=== PATIENT | male | born 1930 | race Caucasian/White ===

== ENCOUNTER 2016-11-08 09:25 | Emergency (ER) | payer OTHER ==
[2016-11-08 09:51] VITALS: BP 185/90; PULSE 71; TEMP 97.5; BMI 38.0
[2016-11-08] MEDS ORDERED: DIPHTH,PERTUSS(ACELL),TET 0.5 ML DISP.SYRIN IM ONE (09:53)
--- NOTE | 2016-11-08 10:00 | PDOC ---
History of Present Illness - General Chief Complaint: Edema Stated Complaint: LEFT LEE WOUND WITH EDEMA Time Seen by Provider: 11/08/16 09:44 - History of Present Illness Initial Comments: 11/08/16 09:56 86 yo male h/o afib, CHF COPD chronic edema, here with c/o anterior lee wound. banged his leg one week ago, now weeping clear fluid from edema. no fever or chills. no worsening redness or pain. no cp . no worse shortness of breath . no mod factors. draining clear, serous fluid. no exudate. no pain. pt sees a career counselor, has not seen in a very long time. pcp. Dr. Siddiqui. Past History - Past Medical History Allergies/Adverse Reactions: Allergies Allergy/AdvReac Type Severity Reaction Status Date / Time No Known Drug Allergies Allergy Verified 12/18/15 03:22 Anemia: No Asthma: Yes Cancer: No Cardiac Disorders: Yes (CHF) CVA: No COPD: Yes CHF: Yes Dementia: No Diabetes: No GI Disorders: No Disorders: Yes (urinary retention) HTN: Yes Hypercholesterolemia: No Liver Disease: No Seizures: No Thyroid Disease: No Other medical history: GOUT - Surgical History Abdominal Surgery: No Appendectomy: Yes Cardiac Surgery: Yes (PACEMAKER 2012) Cholecystectomy: No Lung Surgery: No Neurologic Surgery: No Orthopedic Surgery: No - Immunization History Td Vaccination: Yes Immunization Up to Date: No - Psycho/Social/Smoking Cessation Hx Anxiety: No Suicidal Ideation: No Smoking Status: No Smoking History: Former smoker Have you smoked in the past 12 months: No Number of Cigarettes Smoked Daily: 40 If you are a former smoker, when did you quit?: 50 YEARS AGO Information on smoking cessation initiated: No Hx Alcohol Use: Yes Drug/Substance Use Hx: No Substance Use Type: Alcohol Hx Substance Use Treatment: No Review of Systems - Review of Systems Constitutional: No: Chills, Diaphoresis, Fever Respiratory: Yes: Other (chorn). No: Cough, Orthopnea, Shortness of Breath, Wheezing Cardiac (ROS): No: Chest Pain, Edema Musculoskeletal: Yes: Other (anterior lee skin tear. ) Integumentary: Yes: Lesions Neurological: No: Headache, Numbness Hematologic/Lymphatic: Yes: Other (leg edema chronic) *Physical Exam - Vital Signs Last Vital Signs Temp Pulse Resp BP Pulse Ox 97.5 F L 71 22 185/90 94 L 11/08/16 09:34 11/08/16 09:34 11/08/16 09:34 11/08/16 09:34 11/08/16 09:34 - Physical Exam General Appearance: No: Appropriately Dressed, Apparent Distress Neck: positive: Trachea midline. negative: Normal Thyroid, Rigid Respiratory/Chest: positive: Lungs Clear, Normal Breath Sounds. negative: Respiratory Distress Cardiovascular: positive: Regular Rhythm, Regular Rate, S1, S2, Edema Vascular Pulses: Femoral (R): 2+, Femoral (L): 2+, Dorsalis-Pedis (R): 2+, Doralis-Pedis (L): 2+ Gastrointestinal/Abdominal: positive: Tender, Soft, Other (obese) Extremity: positive: Pedal Edema, Swelling. negative: Erythema, Inflammation Integumentary: positive: Normal Color, Dry, Warm, Other (chronic brawning edema bilat lower extr. left anterio chin 1 x 1/5 cm skin tear. clear drainage. no erythema no warmth. ) Neurologic: positive: Fully Oriented, Alert, Normal Mood/Affect, Responsive ED Treatment Course - LABORATORY CBC & Chemistry Diagram: 11/08/16 10:04 11/08/16 10:04 Medical Decision Making - Medical Decision Making 11/08/16 10:02 86 yo M with h/o afib, CHF, COpd and chronic leg edema on lasix here s/p leg wound with chronic edema/ clear drainage. differentail cellulitis, early, chronic edema. renal failure. plan cbc cmp oral antiobtiocs. local wound care with bacitracin and juan wrap to help edema and drainage. crista close oupt followup. tetanus. 11/08/16 11:02 labs unremarkable. will dc with bactrim twice daily. topical antiobiotics and close followup with dr. siddiqui. 11/08/16 11:06 plan discussed [facility] Dr. Siddiqui who will see pt next week. *DC/Admit/Observation/Transfer Diagnosis at time of Disposition: Skin tear - Discharge Dispostion Disposition: HOME Condition at time of disposition: Improved Admit: No - Referrals Referrals: Martinez Siddiqui MD [Primary Care Provider] - 2 Days - Patient Instructions Additional Instructions: you should take bactrim antiobtiocs pill twice daily. for 7 days. you should also soak left lee in warm water 1 - 2 x daily. apply topical bacitracin or any over the counter triple antiobiotic cream with guaze and juan wrap to hold compression. follow up with Dr. Siddiqui within 2 - 3 days. call to schedule return for worsening redness, pain or fevers. you were given a tetanus shot today and are good for 5 years.
[2016-11-08 10:06] LABS: PLATELET COUNT 177 K/MM3 (134-434)
[2016-11-08 10:21] LABS: BASOPHIL 0.6 % (0-2.0); EOSINOPHIL 1.7 % (0-4.5); MCH 31.6 pg (25.7-33.7); MCHC 33.3 g/dl (32.0-35.9); MEAN CELL VOLUME 94.7 fl (80-96); MEAN PLT VOLUME 9.4 fl (7.5-11.1); NEUTROPHILS 79.9 % (42.8-82.8); RDW 13.1 % (11.9-15.9); WHITE BLOOD COUNT 7.4 K/mm3 (4.0-10.8)
[2016-11-08 10:28] LABS: ALBUMIN 3.6 g/dl (3.5-5.0); ALK PHOS 111 U/L (32-92); ANION GAP 10 (8-16); BILIRUBIN,TOTAL 0.9 mg/dl (0.2-1.0); CALCIUM 8.8 mg/dl (8.4-10.2); CO2 26 mmol/L (22-28); CREATININE 1.6 mg/dl (0.6-1.3); GLUCOSE,RANDOM 191 mg/dl (74-106); SGOT/AST 20 U/L (10-42); SGPT/ALT 24 U/L (10-40); TOT PROT 6.8 g/dl (6.4-8.3)
[2016-11-08] MEDS ORDERED: SULFAMETHOXAZOLE/TRIMETHOPRIM 800MG/160MG D.S. TABLET PO ONE (11:01)
[2016-11-08] MEDS ORDERED: SULFAMETHOXAZOLE/TRIMETHOPRIM 800MG/160MG D.S. TABLET ONE (11:04)
== END 2016-11-08 11:32 | disposition home or self-care (01) ==
LOC: FER 09:25
PROC: 3E0234Z Introduction of Serum, Toxoid and Vaccine into Muscle, Percutaneous Approach (ICD-10-PCS; principal; 2016-11-08)
DX: S81.812A Laceration without foreign body, left lower leg, initial encounter (principal); X58.XXXA Exposure to other specified factors, initial encounter; Y93.9 Activity, unspecified; Y92.9 Unspecified place or not applicable; J44.9 Chronic obstructive pulmonary disease, unspecified; Z87.891 Personal history of nicotine dependence; Z95.0 Presence of cardiac pacemaker; I10 Essential (primary) hypertension; J45.909 Unspecified asthma, uncomplicated
CPT/HCPCS: 36415; 80053; 85025; 90471; 90715; 99282-25

== ENCOUNTER 2017-07-10 22:12 | Inpatient (IN) | payer OTHER ==
--- NOTE | 2017-07-10 22:34 | PDOC ---
History of Present Illness - General Chief Complaint: Weakness Stated Complaint: FALL AND COULDN'T GET UP Time Seen by Provider: 07/10/17 22:25 History Source: Patient Exam Limitations: No Limitations - History of Present Illness Initial Comments: 07/10/17 23:21 This is an 87-year-old male who comes in by EMS for evaluation of generalized weakness of his lower extremities this evening. Patient is obese and does have a home health aide 4 hours a day for days a week. Patient is normally able to ambulate without difficulty. However this evening patient went to get off of the toilet when his legs became too weak to allow him to stand and he slumped to the floor. Patient called his son who then called EMS and he was brought in for evaluation. Patient here in the emergency room is without complaints of any injuries.. Patient said he did not his his head did not pass out. Patient is complaining of generalized weakness in his lower legs as well as low back pain. Patient said he has had low back pain for some time but does not take anything but Tylenol for it. When we attempted to assist patient to a standing position he was unable to stand up with assistance. Patient contributed the difficulty in standing up secondary to weakness and discomfort in his low back and knees bilateral. We were able to assist patient to a standing position and he was able to bear weight but said he felt too weak to ambulate. 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 MEDICATIONS: reviewed ALLERGIES: As per nursing notes Review of Systems General: No fevers or chills, no weakness, no weight loss HEENT: No change in vision. No sore throat,. No ear pain CardioVascular: No chest pain or shortness of breath Respiratory:No cough, or wheezing. Gastrointestinal: no nausea, vomitting, diarrhea or constipation, No rectal bleeding Genitourinary: No dysuria, hematuria, or frequency Musculoskeletal: No joint or muscle pain or swelling Neurologic: No headache, vertigo, dizziness or loss of consciousness, weakness of the lower extremities bilateral Psychiatric: nor depression Skin: No rashes or easy bruising Endocrine: no increased thirst or abnormal weight change Allergic: no skin or latex allergy All other systems reviewed and normal Exam: General: Well-nourished well-developed individual, no acute distress HEENT: Throat: Normal, tonsils normal, no erythema or exudate Neck: Supple, no meningeal signs, no lymphadenopathy Eyes::Pupils equal reactive and round, extraocular motion intact Chest: Nontender to palpation Cardiac: S1-S2 normal, regular rate and rhythm, no murmurs rubs or gallops Respiratory: Lungs clear to auscultation bilateral Abdomen: Soft, nondistended, normal bowel sounds, nontender to palpation diffusely Extremities: Warm, dry, no cyanosis, clubbing, 3+ pitting edema bilateral with some generalized mild erythema Skin: No rashes Neuro: See NIH stroke scale Psych: Normal mood and affect Medical decision making: This is an 87-year-old male who developed acute onset of bilateral leg weakness to the point he was unable to stand up and sat down on the floor of his bathroom. Patient did not fall down or pass out however he was so weak he require the ambulance to get him up off the floor and even then was difficult for him to stand. Differential diagnosis includes CVA, TIA, low back radiculopathy, infection. We'll obtain a workup including CBC, metabolic profile, EKG, cardiac profile, CT head, chest x-ray and urinalysis Will reassess 07/10/17 23:31 Reassessment patient remains clinically unchanged. I attempted to get patient up to ambulate he was unable to stand up patient attributed to back pain and knee pain 07/11/17 00:28 Reassessment patient remains clinically unchanged 07/11/17 00:[address] shows no acute intracranial pathology hemorrhage or CVA there is microvascular changes as well as age related volume loss. EKG shows a pacemaker failure with a dual-chamber pacemaker that is only pacing the ventricular chamber rate is 68 Assessment and plan: This is an 87-year-old male who comes in complaining of generalized leg weakness however when I did the NIH stroke scale it is for 2 points were for a facial droop which is old secondary to his Cristina's palsy and 2 points were for his left leg being more weak than his right. However it is uncertain as to whether this is new or old as he says that he is unable to hold his leg up secondary to pain in his low back. Patient does have an elevated white count with left shift Past History - Past Medical History Allergies/Adverse Reactions: Allergies Allergy/AdvReac Type Severity Reaction Status Date / Time No Known Drug Allergies Allergy Verified 12/18/15 03:22 Anemia: No Asthma: Yes Cancer: No Cardiac Disorders: Yes (CHF) CVA: No COPD: Yes CHF: Yes Dementia: No Diabetes: No GI Disorders: No Disorders: Yes (urinary retention) HTN: Yes Hypercholesterolemia: No Liver Disease: No Seizures: No Thyroid Disease: No - Surgical History Abdominal Surgery: No Appendectomy: Yes Cardiac Surgery: Yes (PACEMAKER 2012) Cholecystectomy: No Lung Surgery: No Neurologic Surgery: No Orthopedic Surgery: No - Immunization History Td Vaccination: Yes Immunization Up to Date: No - Suicide/Smoking/Psychosocial Hx Smoking Status: No Smoking History: Unknown if ever smoked Have you smoked in the past 12 months: No Number of Cigarettes Smoked Daily: 40 If you are a former smoker, when did you quit?: 50 YEARS AGO Hx Alcohol Use: Yes Drug/Substance Use Hx: No Substance Use Type: Alcohol Hx Substance Use Treatment: No *Physical Exam - Vital Signs Last Vital Signs Temp Pulse Resp BP Pulse Ox 97.5 F L 67 16 120/62 97 07/10/17 22:13 07/10/17 22:13 07/10/17 22:13 07/10/17 22:13 07/10/17 22:13 ED Treatment Course - LABORATORY CBC & Chemistry Diagram: 07/10/17 23:30 07/10/17 23:30 *DC/Admit/Observation/Transfer Diagnosis at time of Disposition: Weakness, Pacemaker lead failure - Discharge Dispostion Condition at time of disposition: Stable Admit: Yes - Referrals Referrals: Martinez Siddiqui MD [Primary Care Provider] - - Patient Instructions - Post Discharge Activity
[2017-07-10] MEDS ORDERED: morphine CARPU-JECT 4 MG/1 ML DISP.SYRIN IVPUSH ONE (23:15)
[2017-07-10] MEDS ORDERED: morphine SULFATE 4 MG/ML VIAL ONE (23:30)
--- NOTE | 2017-07-10 23:31 | PDOC ---
NIH Stroke Scale - Last Known Well Date/Time & Onset Date Last Known Well: 07/10/17 Time Last Known Well: 22:00 - Initial Evaluation Level of consciousness: Alert Ask patient the month and their age: Answers both correctly Ask patient to open & close eyes; make fist and let go: Obeys both correctly Best gaze (horizontal eye movement): Normal Visual field testing: No visual field loss Facial paresis (Show teeth/raise eyebrows/close eyes tight): Partial paralysis ( total or near paralysis of lower face) Motor Function: Left Arm: Normal Motor Function: Right Arm: Normal (extends arm 90 (or 45) degrees for 10 seconds without drift Motor Function: Left Leg: Some effort against gravity Motor Function: Right Leg: Normal (extends leg 30 degrees for 5 seconds without drift) Limb Ataxia: No ataxia Sensory(Use pinprick test arms,legs,trunk,face/side to side): Normal Best language (Describe picture, name items, read sentences): No Aphasia Dysarthria (read several words): Normal articulation Extinction and Inattention: No abnormality - Total Score NIH Stroke Scale Score: 4
[2017-07-10 23:41] LABS: HEMATOCRIT 43.6 % (35.4-49); HEMOGLOBIN 14.2 GM/dl (11.7-16.9); INR 1.06 (0.82-1.09); MCH 31.8 pg (25.7-33.7); MCHC 32.6 g/dl (32.0-35.9); MEAN CELL VOLUME 97.5 fl (80-96); MEAN PLT VOLUME 10.1 fl (7.5-11.1); PLATELET COUNT 164 K/MM3 (134-434); PROTHROMBIN TIME (PATIENT) 11.9 SEC (10.2-13.0); RBC 4.47 M/mm3 (4.00-5.60); RDW 13.6 % (11.9-15.9); WHITE BLOOD COUNT 12.3 K/mm3 (4.0-10.8)
[2017-07-10 23:47] LABS: ALBUMIN 3.5 g/dl (3.5-5.0); ALK PHOS 160 U/L (32-92); ANION GAP 15 (8-16); BILIRUBIN,TOTAL 0.9 mg/dl (0.2-1.0); BLOOD UREA NITROGEN 34 mg/dl (7-18); CALCIUM 8.3 mg/dl (8.4-10.2); CHLORIDE 97 mmol/L (98-107); CO2 22 mmol/L (22-28); CREATININE 1.3 mg/dl (0.6-1.3); GLUCOSE,RANDOM 137 mg/dl (74-106); POTASSIUM 4.4 mmol/L (3.5-5.1); SGOT/AST 36 U/L (10-42); SGPT/ALT 31 U/L (10-40); SODIUM 134 mmol/L (136-145); TOT PROT 6.2 g/dl (6.4-8.3)
[2017-07-10 23:54] LABS: PLATELET ESTIMATE ADEQUATE
[2017-07-11 01:10] LABS: URINE APPEARANCE CLEAR; URINE BILIRUBIN NEGATIVE (NEGATIVE); URINE BLOOD 3+ (NEGATIVE); URINE COLOR YELLOW; URINE GLUCOSE (UA) NEGATIVE (NEGATIVE); URINE KETONE NEGATIVE (NEGATIVE); URINE LEUK ESTERASE NEGATIVE (NEGATIVE); URINE NITRITE NEGATIVE (NEGATIVE); URINE PROTEIN NEGATIVE (NEGATIVE); URINE UROBILINOGEN NEGATIVE mg/dL (0.2-1.0)
[2017-07-11 01:16] LABS: EPI CELLS RARE /HPF (FEW); URINE HYALINE CAST 140 /lpf; URINE MUCUS RARE
[2017-07-11 02:51] VITALS: BMI 38.9
[2017-07-11] MEDS: FUROSEMIDE 40 MG TABLET (FP) PO SCH ×2 (06:43→13:53)
[2017-07-11 08:44] LABS: BASO % 0.4 % (0-2.0); EOS % 1.2 % (0-4.5); HEMATOCRIT 39.5 % (35.4-49); HEMOGLOBIN 13.7 GM/dl (11.7-16.9); LYMPH % 10.7 % (8-40); MCH 33.7 pg (25.7-33.7); MCHC 34.7 g/dl (32.0-35.9); MEAN CELL VOLUME 97.2 fl (80-96); MEAN PLT VOLUME 9.7 fl (7.5-11.1); NEUT % 77.7 % (42.8-82.8); PLATELET COUNT 130 K/MM3 (134-434); RBC 4.06 M/mm3 (4.00-5.60); RDW 13.5 % (11.9-15.9); WHITE BLOOD COUNT 8.1 K/mm3 (4.0-10.8)
[2017-07-11 08:55] LABS: ANION GAP 7 (8-16); BLOOD UREA NITROGEN 34 mg/dl (7-18); CALCIUM 8.2 mg/dl (8.4-10.2); CHLORIDE 101 mmol/L (98-107); CO2 26 mmol/L (22-28); CREATININE 1.2 mg/dl (0.6-1.3); GLUCOSE,RANDOM 126 mg/dl (74-106); MAGNESIUM 2.2 mg/dL (1.8-2.4); PHOSPHOROUS 3.8 mg/dl (2.5-4.6); POTASSIUM 3.9 mmol/L (3.5-5.1); SODIUM 134 mmol/L (136-145)
[2017-07-11] MEDS ORDERED: CARVEDILOL 25 MG TABLET (FP) PO SCH (10:00)
[2017-07-11] MEDS ORDERED: PT OWN MED DRAWER 7, Y5N ONE ×2 (10:36→21:40)
[2017-07-11] MEDS: SPIRONOLACTONE 25 MG TABLET (FP) PO SCH (10:47)
[2017-07-11] MEDS: BUDESONIDE/FORMETEROL FUMARATE 160/4.5 mcg INHALER IH SCH ×2 (10:48→21:48)
--- NOTE | 2017-07-11 13:32 | HP ---
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 The patient was at home in his bathroom he was unable to keep himself up, he felt his legs giving out, he dropped to the floor on his legs, hit his right knee, did not hit his head and pressed his life alert necklace. Son and law and grandson tried to lift him, unable, EMS was called. Currently, denies sob, cp, abd pain, head ache, palpitations, fever, chills. He complains of chronic back pain and knee pain he has been getting progressively weak. He drinks ETOH daily, last drink was last night, usually beer or burbon. He was told to take 80mg of lasix in AM and additional 20mg pill, his 20mg pill bottle was thrown away on accident thus, hes only been taking 80mg. 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) Cardiovascular: Yes: AFIB (anticoagulation, including ASA, declined), CHF, HTN Pulmonary: Yes: Asthma, COPD Musculoskeletal: Yes: Osteoarthritis Rheumatology: Yes: Gout Endocrine: Yes: Diabetes Mellitus, Other (obesity) - Past Surgical History Past Surgical History: Yes: Cataract Removal, Permanent Pacemaker - Advance Directives Advance Directives: Yes: Health Care Proxy - Smoking History Smoking history: Unknown if ever smoked Have you smoked in the past 12 months: No Aproximately how many cigarettes per day: 40 If you are a former smoker, when did you quit?: 50 YEARS AGO - Alcohol/Substance Use Hx Alcohol Use: Yes (EVERYDAY) History of Substance Use: reports: None - Social History Usual Living Arrangement: Yes: Alone ADL: Independent Occupation: Retired- [employer] History of Recent Travel: No Home Medications - Allergies Allergies/Adverse Reactions: Allergies Allergy/AdvReac Type Severity Reaction Status Date / Time No Known Drug Allergies Allergy Verified 12/18/15 03:22 Family Disease History - Family Disease History Family Disease History: Other: Father ( 83 COPD), Mother ( 66 brain tumor) Review of Systems - Review of Systems Constitutional: reports: No Symptoms Eyes: reports: No Symptoms HENT: reports: No Symptoms Neck: reports: No Symptoms Cardiovascular: reports: No Symptoms Respiratory: reports: No Symptoms Gastrointestinal: reports: No Symptoms Genitourinary: reports: No Symptoms Musculoskeletal: reports: No Symptoms Integumentary: reports: No Symptoms Neurological: reports: Unsteady Gait, Weakness Endocrine: reports: No Symptoms Hematology/Lymphatic: reports: No Symptoms Psychiatric: reports: No Symptoms Physical Examination Vital Signs: Vital Signs Temperature 97.9 F 07/11/17 05:34 Pulse Rate 66 07/11/17 09:00 Respiratory Rate 16 07/11/17 09:00 Blood Pressure 131/66 07/11/17 09:00 O2 Sat by Pulse Oximetry (%) 95 07/11/17 09:00 Constitutional: Yes: No Distress, Calm Eyes: Yes: Conjunctiva Clear, Ptosis (r eye) HENT: Yes: Atraumatic Neck: Yes: Supple Cardiovascular: Yes: Pulse Irregular, S1, S2 Respiratory: Yes: On Nasal O2, Rhonchi (l base) Gastrointestinal: Yes: Normal Bowel Sounds, Soft, Abdomen, Obese Renal/: Yes: WNL Musculoskeletal: Yes: Back Pain (lower back) Edema: Yes Edema: LLE: 2+, RLE: 2+ Integumentary: Yes: Erythema, Venous Stasis Changes (b/l) Neurological: Yes: Alert, Oriented, Cran Nerves II-XII Intact Psychiatric: Yes: Alert, Oriented Labs: CBC, BMP 07/11/17 08:00 07/11/17 08:00 Imaging - Results X-ray: Report Reviewed, Image Reviewed Cat Scan: Report Reviewed Problem List - Problems (1) Fall Code(s): W19.XXXA - UNSPECIFIED FALL, INITIAL ENCOUNTER (2) Weakness Code(s): R53.1 - WEAKNESS (3) CHF (congestive heart failure) Code(s): I50.9 - HEART FAILURE, UNSPECIFIED Qualifiers: Congestive heart failure type: unspecified congestive heart failure type Congestive heart failure chronicity: acute (4) COPD (chronic obstructive pulmonary disease) Code(s): J44.9 - CHRONIC OBSTRUCTIVE PULMONARY DISEASE, UNSPECIFIED (5) HTN (hypertension) Code(s): I10 - ESSENTIAL (PRIMARY) HYPERTENSION (6) Morbid obesity Code(s): E66.01 - MORBID (SEVERE) OBESITY DUE TO EXCESS CALORIES Assessment/Plan Assessment: 87 year old male admitted s/p fall with worsening b/l lower ext weakness Plan: 1. S/p fall/weakness - Possibly due to chronic ETOH abuse, ? demylination, ?spinal infarcts and non compliance with diuretics - CT head negative - Neurology consulted (pt has PPM not MRI compatible) 2. Acute on chronic CHF - Change lasix to 80mg daily IV - Cardiology consulted 3. p AF, s/p PPM - PPM interrogated, no issues function fine, however still with irregular appearing EKG readings, called company to return, initial interrogation in chart 4. R knee pain - R knee xray 5. HTN - Controlled - Continue coreg 25mg big - Continue aldactone 25mg daily 6. COPD - Not in exacerbation - Symbicort 2puff BID 7. Hx Urinary retention/BPH - Has neurogenic bladder s/p Interstim placement stimulator, is MRI compatible ( card in pt wallet) 8. ETOH abuse - Denies withdrawal symptoms at this time. - pt doesn't want to stop drinking, possibly cut back Visit type - Emergency Visit Emergency Visit: Yes ED Registration Date: 07/11/17 Care time: The patient presented to the Emergency Department on the above date and was hospitalized for further evaluation of their emergent condition. - New Patient This patient is new to me today: Yes Date on this admission: 07/11/17 - Critical Care Critical Care patient: No
--- NOTE | 2017-07-11 15:46 | CON.NEURO ---
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) Cardio/Vascular: Yes: AFIB (anticoagulation, including ASA, declined), CHF, HTN Pulmonary: Yes: Asthma, COPD Musculoskeletal: Yes: Osteoarthritis Rheumatology: Yes: Gout Endocrine: Yes: Diabetes Mellitus, Other (obesity) - Past Surgical History Past Surgical History: Yes: Cataract Removal, Permanent Pacemaker - Alcohol/Substance Use Hx Alcohol Use: Yes (EVERYDAY) History of Substance Use: reports: None - Smoking History Smoking history: Unknown if ever smoked Have you smoked in the past 12 months: No Aproximately how many cigarettes per day: 40 If you are a former smoker, when did you quit?: 50 YEARS AGO - Social History ADL: Independent Occupation: Retired- [employer] History of Recent Travel: No Home Medications - Allergies Allergies/Adverse Reactions: Allergies Allergy/AdvReac Type Severity Reaction Status Date / Time No Known Drug Allergies Allergy Verified 12/18/15 03:22 Family Disease History - Family Disease History Family Disease History: Other: Father ( 83 COPD), Mother ( 66 brain tumor) Physical Exam-Neuro Vital Signs: Vital Signs Temperature 97.9 F 07/11/17 14:06 Pulse Rate 69 07/11/17 14:06 Respiratory Rate 20 07/11/17 14:06 Blood Pressure 120/52 07/11/17 14:06 O2 Sat by Pulse Oximetry (%) 97 07/11/17 14:06 Constitutional: Yes: Obese Edema: LLE: 2+ (foot), RLE: 2+ (foot) Labs: CBC, BMP 07/11/17 08:00 07/11/17 08:00 INR, PTT INR 1.06 (0.82-1.09) 07/10/17 23:30 - Neuro Exam Level Of Consciousness: Yes: Oriented to Person, Oriented to Place, Oriented to Time Eyes: Yes: NATHAN Speech: WNL Cranial Nerves II-XII Intact: No (old right peripheral pattern facial) DTR's: 2+ Left Bicep, 2+ Right Bicep, 2+ Left Tricep, 2+ Right Tricep Response to light touch: Abnormal (reduced sensation in foot to ankle, right worse than left) Response to vibration: Abnormal (reduced position sense left foot) Motor Strength: 2/5: Left Leg, Right Leg (proximal, unclear how much is pain limitation, plantar flexion, dorsiflexion, and EHL are 5/5), 5/5: Left Arm, Right Arm Imaging - Results Cat Scan: Report Reviewed, Image Reviewed (colloid cyst (apparently unchanged from prior scan)) Problem List - Problems (1) Weakness Code(s): R53.1 - WEAKNESS Assessment/Plan bilateral leg weakness of acute onset with pain in knees. Difficult to say how much of sensory changes are new. He denies acute back pain making an acute radicular problem unlikely, though not impossible. He has no change in bowel/ bladder habits. This could be an anterior cerebral artery infarct, not yet visible on CT scan, as sometimes both LAST arise from a single carotid. Spinal cord infarction seems less likely as this is usually due to damage to the [place] Artery of [place] and that would impair his strength, pain and temp sensation below his legs but spare his proprioception. THis is not the case here. Venous infarction could produce this pattern though this is less common. Recommend repeat head CT tomorrow, and obtain CT scan of T and L spine. Thanks.
--- NOTE | 2017-07-11 17:35 | CON.CARD ---
Cardiology Consult (text) - Consultation Consultation Note: CC: weakness 87 yo with h/o obesity, chronic venous insuff/le edema, systolic chf (NICM, likely from etoh abuse), heart block s/p single chamber ppm (biotronik, vvi), pafib (refuses AC), htn, etoh abuse, urinary retention s/p implantation of bladder stimulator 02/2016 presents with weakness/fall. He has hx of med noncompliance and admits he is not taking his meds regularly. States he often misses his medications and knows for sure that he has not taken any medications in the past week. Continues to drink etoh daily. Over the past week he has had increasing weakness/fatigue, bernal (new limiting bernal with adl's such as getting dressed). On day of presentation states his legs suddenly gave out on him and he fell. No presyncope or syncope. Endorses a similar fall last week. Now with knee pain and back pain 2/2 recent falls. denies orthopnea, pnd, palps, dizziness, worsening of chronic le edema, transient neurologic symptoms. Has had ppm interrogation due to concern for ppm malfunction --> interrogation wnl. Of note, weight/bp was up at recent cards office visit beginning of june due to med non-compliance and his lasix dose was adjusted to daily dosing (at a higher dose) to help with med compliance. unclear if patient implemented change in dosing. s/p lasix 80 mg po bid today, has been ordered IV lasix for tomorrow. cards: kalyan pmh/psh: per hpi social: ex tob, +etoh abuse, drinking bourbon daily. fam: no h/o CAD ros: per hpi; no fever, chills, sweats, no nausea, vomiting or diarrhea, abd pain, decreased po intake, cough, congestion, WILCOX, vision changes meds: Home Medications Per cardiology office notes: lasix 80 bid, asa 81, coreg 12.5 bid, aldactone 25 qd. Current Medications Budesonide/Formoterol Fumarate (Symbicort 160/4.5mcg -) 2 puff IH BID [facility] Last Admin: 07/11/17 10:48 Dose: 2 puff Carvedilol (Coreg -) 25 mg PO BID [facility] Last Admin: 07/11/17 10:47 Dose: 25 mg Furosemide (Lasix Injection -) 80 mg IVPUSH DAILY [facility] Spironolactone (Aldactone -) 25 mg PO DAILY [facility] Last Admin: 07/11/17 10:47 Dose: 25 mg Vital Signs - 24 hr 07/10/17 07/11/17 07/11/17 22:13 01:34 02:32 Temperature 97.5 F L 97.9 F Pulse Rate 67 70 Respiratory 16 19 Rate Blood Pressure 120/62 154/55 O2 Sat by Pulse 97 95 Oximetry (%) 07/11/17 07/11/17 07/11/17 05:34 06:18 08:20 Temperature 97.9 F Pulse Rate 69 Respiratory 17 17 Rate Blood Pressure 145/55 O2 Sat by Pulse 95 95 Oximetry (%) 07/11/17 07/11/17 07/11/17 09:00 14:06 16:00 Temperature 97.9 F Pulse Rate 66 69 Respiratory 16 20 20 Rate Blood Pressure 131/66 120/52 O2 Sat by Pulse 95 97 97 Oximetry (%) Intake & Output 07/09/17 07/10/17 07/11/17 07/12/17 07:59 07:59 07:59 07:59 Intake Total 400 1250 Balance 400 1250 Weight 286 lb 11.2 oz nad, calm +jvd rrr s1s2 no mrg + displaced pmi dullness at left base, nl effort pos bs, obese nt nd , no hsm 1+ dependent le edema b/l with chronic stasis changes of skin, erythema. no calor dimished dp/pt no carotid bruit no jaundice/diaphoresis aaox3 CBC, BMP 07/11/17 08:00 07/11/17 08:00 Laboratory Tests 07/10/17 07/10/17 07/11/17 23:30 23:30 08:00 Magnesium 2.2 Total Bilirubin 0.9 AST 36 D ALT 31 D Alkaline Phosphatase 160 H D Troponin I 0.03 D ekg: v paced, underlying atrial artifact likely due to interference from patient 's bladder stimulator telem: v-paced. underlying atrial artifact likely due to interference from patient's bladder stimulator cxr (images, report reviewed): suboptimal visualization of left lung base. head ct: (images, report reviewed): no acute pathology echo 02/2017: lvef 45-50%, global hk, mild lve, mild lvh, nl rv, mod cecilio, mild mr, mod tr, mild ar, mod phtn, ao root mildly dilated echo 02/2015: mild lve, mild conc lvh, lvef 30-35% with global hk, rv mild dilated with nl fcn, cecilio, mild-mod mr, mod tr, mild-mod ar, rvsp 53, mild ao root dil mibi 08/2014: persantine, no ischemia/scar, lvef 41% Assessment/Plan 87 yo with h/o obesity, chronic venous insuff/le edema, systolic chf (NICM, likely from etoh abuse), heart block s/p single chamber ppm (biotronik, vvi), pafib (refuses AC), htn, etoh abuse, urinary retention s/p implantation of bladder stimulator 02/2016 presents with weakness/fall. acute CHF exacerbation (NICM) - Pt has history of dchf and superimposed NICM thought to be secondary to etoh, with coexisting mod-severe pulmonary hypertension and chronic LE edema. - His management has been complicated by poor compliance with meds and salt restriction -current exacerbation likely due to admitted med noncompliance. -No signs of ACS, trops negx1. EKG v-paced - con't bb, aldactone. had self-dc'd acei in the past --> later started on hydralazine/imdur --> had to be stopped in past due to hypotension/dizziness/ falls. - Dry weight unclear but likely close to 280 lbs or less. On past admissions has been diuresed with lasix 80 mg IV bid. Would resume that regimen with close monitoring of bmp/na. daily standing weights, i/o's, bmp. single chamber ppm (biotronik, vvi): - interrogation here shows good battery life and nl lead function. - NOTE patient does not have an atrial lead. A-pacing spikes on ekg/telemetry are artifactual, likely due to interference from patient's bladder stimulator. Can d/c telemetry since artifact is also present on telemetry. pafib: - rate controlled and s/p ppm. con't coreg (office dosing reported as 12.5 bid , will adjust dose) - He has refused ac on multiple occasions (and is a poor candidate regardless given his noncompliance). resume asa. - lyte repletion prn obesity with pulm htn - high risk for joelle. Would monitor pulse ox at night to avoid hypoxia/RV dysfunction. htn: - monitor with med changes. etoh abuse: -etoh cessation ok to d/c telemetry
[2017-07-11] MEDS ORDERED: ACETAMINOPHEN 325 MG TABLET (FP) PO ONE (20:00)
[2017-07-11] MEDS: CARVEDILOL 12.5 MG TABLET (FP) PO SCH (21:48)
[2017-07-12] MEDS: FUROSEMIDE 40 MG/4 ML INJECTABLE VIAL IVPUSH SCH ×2 (05:41→13:26)
[2017-07-12 07:42] LABS: BASO % 0.3 % (0-2.0); EOS % 0.1 % (0-4.5); HEMATOCRIT 39.7 % (35.4-49); HEMOGLOBIN 13.3 GM/dl (11.7-16.9); LYMPH % 4.2 % (8-40); MCH 32.5 pg (25.7-33.7); MCHC 33.4 g/dl (32.0-35.9); MEAN CELL VOLUME 97.3 fl (80-96); MEAN PLT VOLUME 9.8 fl (7.5-11.1); MONO % 10.7 % (3.8-10.2); NEUT % 84.7 % (42.8-82.8); PLATELET COUNT 135 K/MM3 (134-434); RBC 4.09 M/mm3 (4.00-5.60); RDW 13.7 % (11.9-15.9); WHITE BLOOD COUNT 10.5 K/mm3 (4.0-10.8)
--- NOTE | 2017-07-12 07:48 | PN ---
Progress Note, Physician Chief Complaint: leg weakness History of Present Illness: no sob, cp, palpit, leg swelling - Current Medication List Current Medications: Active Medications Budesonide/Formoterol Fumarate (Symbicort 160/4.5mcg -) [address] [facility] Last Admin: 07/11/17 21:48 Dose: 2 puff Carvedilol (Coreg -) 12.[address] [facility] Last Admin: 07/11/17 21:48 Dose: 12.5 mg Furosemide (Lasix Injection -) [address] [facility] Last Admin: 07/12/17 05:41 Dose: 80 mg Spironolactone (Aldactone -) [address] [facility] Last Admin: 07/11/17 10:47 Dose: 25 mg - Objective Vital Signs: Vital Signs Temperature 98.5 F 07/12/17 05:00 Pulse Rate 60 07/12/17 05:00 Respiratory Rate 18 07/12/17 05:00 Blood Pressure 129/48 07/12/17 05:00 O2 Sat by Pulse Oximetry (%) 95 07/12/17 06:07 Constitutional: Yes: No Distress, Calm, Obese Cardiovascular: Yes: Regular Rate and Rhythm, S1, S2. No: JVD, Gallop, Murmur Respiratory: Yes: Regular, CTA Bilaterally. No: Accessory Muscle Use, Rales, Wheezes Extremities: No: Cold Edema: No (SCDs) Neurological: Yes: Alert, Oriented Psychiatric: No: Agitated Labs: INR, PTT INR 1.06 (0.82-1.09) 07/10/17 23:30 - ....Imaging EKG: Other (tele: prob NSR, much baseline artifact (due to bladder stim). no tachy) Assessment/Plan ekg: v paced, underlying atrial artifact likely due to interference from patient 's bladder stimulator cxr: clear lungs, suboptimal visualization of left lung base. head ct: no acute pathology Echo 02/2017: lvef 45-50%, global hk, mild lve, mild lvh, nl rv, mod cecilio, mild mr, mod tr, mild ar, mod phtn, ao root mildly dilated echo 02/2015: mild lve, mild conc lvh, lvef 30-35% with global hk, rv mild dilated with nl fcn, cecilio, mild-mod mr, mod tr, mild-mod ar, rvsp 53, mild ao root dil mibi 08/2014: persantine, no ischemia/scar, lvef 41% Assessment/Plan 87 yo with h/o obesity, chronic venous insuff/le edema, systolic chf (NICM, likely from etoh abuse), heart block s/p single chamber ppm (biotronik, vvi), pafib (refuses AC), htn, etoh abuse, urinary retention s/p implantation of bladder stimulator 02/2016 presents with weakness/fall. 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 WHO 3 component (ANSHU?)): - Pt has history of dchf and superimposed NICM thought to be secondary to etoh, with coexisting mod-severe pulmonary hypertension and chronic LE edema. - His management has been complicated by poor compliance with meds and salt restriction - currently presenting with Rt > Lt CHF (JVD, edema, clear cxr) in setting of admitted med noncompliance and etoh abuse. - BNP 2K (range 1K-9K). appears euvolemic on exam. - Dry weight unclear but likely close to 280 lbs or less. On past admissions has been diuresed with lasix 80 mg IV bid--resumed same regimen here. - 2/3: wt declining (283), labs stable (bicarb rising slightly). same diuretic regimen today, reassess in AM--anticipate will change to po lasix regimen tomorrow - No signs of ACS, trops negx1. EKG v-paced - con't bb, aldactone. had self-dc'd acei in the past --> later started on hydralazine/imdur --> had to be stopped in past due to hypotension/dizziness/ falls. acute LE weakness, fall: - pt states his knee buckled. - being evaluated by neuro. - per neuro note, suspicion of TIA/CVA is low, but pt to have rpt imaging. if TIA/CVA diagnosed or suspected by neuro, pt must be made aware that his risk of recurrent CVA is very high unless he either agrees to AC or to Watchman procedure single chamber ppm (biotronik, vvi): - interrogation here shows good battery life and nl lead function. - NOTE patient does not have an atrial lead. A-pacing spikes on ekg/telemetry are artifactual, likely due to interference from patient's bladder stimulator. Can d/c telemetry since artifact is also present on telemetry. pafib: - rate controlled and s/p ppm. con't coreg (office dosing reported as 12.5 bid , will adjust dose) - He has refused ac on multiple occasions (and is a poor candidate regardless given his noncompliance). resume asa. - ? if dr biggs has discussed Watchman device with pt in office--defer to routine f/u htn: - bp controlled - same plan etoh abuse: - repeatedly counselled on cessation re: risks of falls, head injury, spontaneous ICH on prior admits here, but he has refused cessation efforts - per pmd
[2017-07-12 08:21] LABS: ANION GAP 8 (8-16); BLOOD UREA NITROGEN 29 mg/dl (7-18); CHLORIDE 96 mmol/L (98-107); CO2 29 mmol/L (22-28); CREATININE 1.2 mg/dl (0.6-1.3); GLUCOSE,RANDOM 165 mg/dl (74-106); SODIUM 133 mmol/L (136-145)
[2017-07-12] MEDS ORDERED: PT OWN MED DRAWER 7, Y5N ONE ×2 (09:30→20:58)
[2017-07-12] MEDS: SPIRONOLACTONE 25 MG TABLET (FP) PO SCH (09:38)
[2017-07-12] MEDS: BUDESONIDE/FORMETEROL FUMARATE 160/4.5 mcg INHALER IH SCH ×2 (09:38→21:03)
[2017-07-12] MEDS: CARVEDILOL 12.5 MG TABLET (FP) PO SCH ×2 (09:38→21:03)
[2017-07-12] MEDS ORDERED: FUROSEMIDE 40 MG/4 ML INJECTABLE VIAL IVPUSH SCH (10:00)
--- NOTE | 2017-07-12 10:55 | PN ---
Physical Exam: SUBJECTIVE: Patient seen and examined. Fully alert and oriented. Offers no complaints. OBJECTIVE: Vital Signs Period Temp Pulse Resp BP Sys/Narvaez Pulse Ox Last 24 Hr 97.9 F-98.5 F 60-70 16-20 120-142/48-63 94-99 GENERAL: The patient is awake, alert, and fully oriented, in no acute distress. HEAD: Normal with no signs of trauma. EYES: PERRL, extraocular movements intact, sclera anicteric, conjunctiva clear. No ptosis. ENT: Ears normal, nares patent, oropharynx clear without exudates, moist mucous membranes. NECK: Trachea midline, full range of motion, supple. +JVD. LUNGS: Breath sounds equal, clear to auscultation bilaterally, no wheezes, no crackles, no accessory muscle use. HEART: Regular rate and rhythm, S1, S2 without murmur, rub or gallop. ABDOMEN: Soft, obsese, nondistended, normoactive bowel sounds, no guarding, no rebound, no hepatosplenomegaly, no masses. EXTREMITIES: 2+ pulses, warm, well-perfused, no edema. NEUROLOGICAL: Cranial nerves II through XII grossly intact. Normal speech. 2/5 lower extremity strength. PSYCH: Normal mood, normal affect. SKIN: Warm, dry, normal turgor. Stage II gluteal cleft ulcer, Stage I heel ulcers. Laboratory Results - last 24 hr 07/12/17 07/12/17 07:10 07:10 WBC 10.5 RBC 4.09 Hgb 13.3 Hct 39.7 MCV 97.3 H MCH 32.5 MCHC 33.4 RDW 13.7 Plt Count 135 MPV 9.8 Neutrophils % 84.7 H Lymphocytes % 4.2 L D Monocytes % 10.7 H Eosinophils % 0.1 D Basophils % 0.3 Sodium 133 L Potassium 4.0 Chloride 96 L Carbon Dioxide 29 H Anion Gap 8 BUN 29 H Creatinine 1.2 Random Glucose 165 H D Calcium 8.0 L Active Medications Generic Name Dose Route Start Last Admin Trade Name Freq PRN Reason Stop Dose Admin Budesonide/Formoterol Fumarate 2 puff 07/11/17 10:00 07/12/17 09:38 Symbicort 160/4.5mcg - IH 2 puff BID [facility] Administration Carvedilol 12.5 mg 07/11/17 22:00 02/03/18 09:38 Coreg - PO 12.5 mg BID [facility] Administration Furosemide 80 mg 07/12/17 06:00 07/12/17 05:41 Lasix Injection - IVPUSH 80 mg BIDLASIX [facility] Administration Spironolactone 25 mg 07/11/17 10:00 07/12/17 09:38 Aldactone - PO 25 mg DAILY [facility] Administration ASSESSMENT/PLAN: 87 year old male with obesity, chronic venous insuff/LE edema, systolic chf (NICM, likely from etoh abuse), heart block s/p single chamber ppm (Biotronik, vvi), pAfib (refuses AC), HTN, chronic EtOH abuse, 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 1. Cards: Systolic CHF with acute exacerbation, pulm HTN -In setting of medication and salt restriction non-compliance -Contine BB, aldactone -Lasix 80mg IV bid -Monitor electrolytes -Daily weights -Strict I/O -PM interrogation here shows good battery life and normal lead function -No need for telemetry NOTE patient does not have an atrial lead. A-pacing spikes on ekg/telemetry are artifactual, likely due to interference from patient's bladder stimulator pAfib -Rate controlled, continue Coreg -Continue ASA -Patient refuses AC HTN -BP at goal -Continue Lasix, Coreg, Aldactone 2. Neuro: LE weakness -Neurology following -For repeat HCT (PM not MRI-compatible) today -For T-spine, L-spine CT today -Start MVI, folate, thiamine supplementation 3. : Microscopic hematuria -Outpatient urology evaluation 4. Derm: pressure ulcers -Frequent turning -Sacral dressing -Heel boots 5. Endo: Hyperglycemia -Check HgbA1C -Diabetic diet -Re-start home Metformin (in medications daughter brought from home for review) 6. F/E/N -Mild hyponatremia, follow 7. Ppx -Sqh DISPO: Admit for inpatient services. SNF placement. Visit type - Emergency Visit Emergency Visit: Yes ED Registration Date: 07/12/17 Care time: The patient presented to the Emergency Department on the above date and was hospitalized for further evaluation of their emergent condition. - New Patient This patient is new to me today: Yes Date on this admission: 02/03/18 - Critical Care Critical Care patient: No - Discharge Referral Referred to [facility] Med P.C.: No
[2017-07-12] MEDS: HEPARIN NA (PORCINE) 5,000 UNITS/ML 1ML VIAL SQ SCH (21:03)
[2017-07-13] MEDS: metFORMIN HCL 500 MG TABLET (FP) PO SCH (06:53)
[2017-07-13] MEDS: FUROSEMIDE 40 MG/4 ML INJECTABLE VIAL IVPUSH SCH ×2 (06:53→14:30)
[2017-07-13 08:47] LABS: BASO % 0.2 % (0-2.0); EOS % 0.1 % (0-4.5); HEMATOCRIT 38.5 % (35.4-49); HEMOGLOBIN 12.6 GM/dl (11.7-16.9); LYMPH % 6.6 % (8-40); MCH 32.1 pg (25.7-33.7); MCHC 32.7 g/dl (32.0-35.9); MEAN CELL VOLUME 98.3 fl (80-96); MEAN PLT VOLUME 10.3 fl (7.5-11.1); MONO % 9.9 % (3.8-10.2); NEUT % 83.2 % (42.8-82.8); PLATELET COUNT 114 K/MM3 (134-434); RBC 3.92 M/mm3 (4.00-5.60); RDW 13.6 % (11.9-15.9); WHITE BLOOD COUNT 10.9 K/mm3 (4.0-10.8)
[2017-07-13 08:53] LABS: ALBUMIN 2.6 g/dl (3.5-5.0); ALK PHOS 125 U/L (32-92); ANION GAP 10 (8-16); BILIRUBIN,TOTAL 1.3 mg/dl (0.2-1.0); BLOOD UREA NITROGEN 35 mg/dl (7-18); CALCIUM 7.9 mg/dl (8.4-10.2); CHLORIDE 98 mmol/L (98-107); CO2 27 mmol/L (22-28); CREATININE 1.3 mg/dl (0.6-1.3); GLUCOSE,RANDOM 119 mg/dl (74-106); MAGNESIUM 2.1 mg/dL (1.8-2.4); SGOT/AST 17 U/L (10-42); SGPT/ALT 21 U/L (10-40); SODIUM 135 mmol/L (136-145); TOT PROT 5.3 g/dl (6.4-8.3)
[2017-07-13] MEDS: HEPARIN NA (PORCINE) 5,000 UNITS/ML 1ML VIAL SQ SCH ×2 (09:52→21:46)
[2017-07-13] MEDS: BUDESONIDE/FORMETEROL FUMARATE 160/4.5 mcg INHALER IH SCH ×2 (09:52→21:46)
[2017-07-13] MEDS: SPIRONOLACTONE 25 MG TABLET (FP) PO SCH (09:52)
[2017-07-13] MEDS: CARVEDILOL 12.5 MG TABLET (FP) PO SCH ×2 (09:52→21:46)
[2017-07-13 10:26] LABS: ERYTHROCYTE SEDIMENTATION RATE 72 mm/hr (0-20)
--- NOTE | 2017-07-13 11:22 | PN ---
Progress Note, Physician History of Present Illness: 87 year old male with obesity, chronic venous insuff/LE edema, systolic chf ( NICM, likely from etoh abuse), heart block s/p single chamber ppm (Biotronik, vvi), pAfib (refuses AC), HTN, chronic EtOH abuse, 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 states sx started this past friday while he was in bathroom- no LOC. feels he cnat walk in and knees in pain; chronic low back pain and chronic numbness of his feet-- both of these appear no worse from the past. drinks 4 days in week/weekends ( 4 beers with dinner and on weekend a glass of bourbon) CT HD IMPRESSION: No significant interval change. 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 There remains generalized volume loss with moderate ventricular dilatation and periventricular chronic microvascular ischemic changes. IMPRESSION: Minimal compression of L4 superior endplate, likely chronic. Otherwise, no gross acute fracture or subluxation is identified. Mild annular dilatation of the proximal abdominal aorta measuring 3.3 cm in AP dimension. Distally it measures 2.5 cm. IMPRESSION: See discussion above No compression fracture or subluxation is identified. Intervertebral disc spaces are intact. Correlate clinically to determine further evaluation. CT scan of the lumbar spine without intravenous contrast. Coronal and sagittal reconstruction images were obtained. There is straightening of the lumbar spine. Minimal compression of L4 superior endplate, likely chronic without compromise of the spinal canal. Otherwise, the height and alignment of the vertebral bodies appear unremarkable without gross evidence of an acute fracture or subluxation. Moderate bilateral facet hypertrophy at L4-L5 and L5-S1 level. There is no gross narrowing of the spinal canal. However, evaluation of the spinal canal contents are quite limited on this examination due to beam hardening artifacts. No paraspinal soft tissue mild to seen. Vascular calcifications are present. 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 This measures 2.5 cm. Diffuse atheromatous calcified plaques are present down through its bifurcation - Current Medication List Current Medications: Active Medications Budesonide/Formoterol Fumarate (Symbicort 160/4.5mcg -) 2 puff IH BID [facility] Last Admin: 07/13/17 09:52 Dose: 2 puff Carvedilol (Coreg -) 12.5 mg PO BID [facility] Last Admin: 07/13/17 09:52 Dose: 12.5 mg Furosemide (Lasix Injection -) 80 mg IVPUSH BIDLASIX [facility] Last Admin: 07/13/17 06:53 Dose: 80 mg Heparin Sodium (Porcine) (Heparin -) 5,000 unit SQ BID [facility] Last Admin: 07/13/17 09:52 Dose: 5,000 unit Metformin HCl (Glucophage -) 500 mg PO DAILY@0700 [facility] Last Admin: 07/13/17 06:53 Dose: 500 mg Oxycodone/Acetaminophen (Percocet 5/325 -) 1 combo PO Q6H PRN PRN Reason: PAIN LEVEL 6-10 Last Admin: 07/12/17 13:27 Dose: 1 combo Spironolactone (Aldactone -) 25 mg PO DAILY [facility] Last Admin: 07/13/17 09:52 Dose: 25 mg - Objective Vital Signs: Vital Signs Temperature 98 F 07/13/17 09:44 Pulse Rate 58 L 07/13/17 09:44 Respiratory Rate 18 07/13/17 09:44 Blood Pressure 152/58 07/13/17 09:44 O2 Sat by Pulse Oximetry (%) 94 L 07/13/17 09:00 Constitutional: Yes: Well Nourished HENT: Yes: Other (chronic R [place]) Neurological: Yes: Alert (awake alert, R facial (old) no focal weakness in UE, mild tremor, no asterxis, LE unable to elevate legs ( IP, quads, hams) ; TA 4+/ 5 --but gives limited effort--pain and tenderess in the knees and ankles and winces to touch/strength testing. reflexes UE 2+, patellar and achilles (-), plantars down, no sesnory level, propr intact. gait unable) Labs: CBC, BMP 07/13/17 08:00 07/13/17 08:00 INR, PTT INR 1.06 (0.82-1.09) 07/10/17 23:30 Problem List - Problems (1) Fall Code(s): W19.XXXA - UNSPECIFIED FALL, INITIAL ENCOUNTER (2) Weakness Code(s): R53.1 - WEAKNESS (3) Alcohol abuse Code(s): F10.10 - ALCOHOL ABUSE, UNCOMPLICATED (4) CHF (congestive heart failure) Code(s): I50.9 - HEART FAILURE, UNSPECIFIED Qualifiers: Congestive heart failure type: unspecified congestive heart failure type Congestive heart failure chronicity: acute Assessment/Plan 87 year old male with obesity, chronic venous insuff/LE edema, systolic chf ( NICM, likely from etoh abuse), heart block s/p single chamber ppm (Biotronik, vvi), pAfib (refuses AC), HTN, chronic EtOH abuse, 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 states sx started this past friday while he was in bathroom- no LOC. feels he cnat walk in and knees in pain; chronic low back pain and chronic numbness of his feet-- both of these appear no worse from the past. Appaers to have a paraplegia Syndrome -- ? peripheral as their are no long tract pattern on exam; NPH is possibility but would not occur suddenly and cause pain. Stroke would be unusual to cause BL weakness,though spinal cord infarct in differential. he has underlying a neuropathy ( though by HX this appears to be chronic)-- AIDP /GBS a possibility though at this juncture he has preserved UE reflexes. r/o joint issues, Rheumatoid etc +/- DVT Plan : check LE dopllers check XRAY knees, elevated ESR check EMG if possible may need CT myelogram may also need flouro-guided LP start b12 supplementation rehab Dr Mendoza
--- NOTE | 2017-07-13 11:26 | PN ---
Physical Exam: SUBJECTIVE: Patient seen and examined in bed this AM. Pt states he still feels weak, His legs are weak and he can't get oob. OBJECTIVE: Vital Signs Period Temp Pulse Resp BP Sys/Narvaez Pulse Ox Last 24 Hr 97.6 F-98.9 F 55-81 18-20 112-152/45-63 94-98 GENERAL: The patient is awake, alert, and fully oriented, but feels weak NECK: Trachea midline, full range of motion, supple. LUNGS: Breath sounds equal, clear to auscultation bilaterally but diminished, no wheezes, no crackles, no accessory muscle use. HEART: Regular rate and rhythm, S1, S2 has a PPM for ventricular response ABDOMEN: large round, obese and soft, nontender, nondistended, normoactive bowel sounds, no guarding, no rebound, no hepatosplenomegaly, no masses. EXTREMITIES: 2+ pulses, warm, well-perfused, +2 edema generalized throughout LE. With SCD and heel protectors in place elevated. . NEUROLOGICAL: Cranial nerves II through XII grossly intact. Normal speech, gait not observed with pt c/o he can't get out of bed. PSYCH: Normal mood, normal affect. SKIN: Warm, dry, normal turgor, no rashes or lesions noted Laboratory Results - last 24 hr 07/12/17 07/12/17 07/13/17 07:10 07:10 08:00 WBC 10.9 H RBC 3.92 L Hgb 12.6 Hct 38.5 MCV 98.3 H MCH 32.1 MCHC 32.7 RDW 13.6 Plt Count 114 L MPV 10.3 Neutrophils % 83.2 H Lymphocytes % 6.6 L D Monocytes % 9.9 Eosinophils % 0.1 Basophils % 0.2 ESR 72 H Sodium Potassium Chloride Carbon Dioxide Anion Gap BUN Creatinine Creat Clearance w eGFR Random Glucose Hemoglobin A1c % Calcium Magnesium Total Bilirubin AST ALT Alkaline Phosphatase B-Natriuretic Peptide 2736.78 H Total Protein Albumin Vitamin B12 347 07/13/17 07/13/17 08:00 08:00 WBC RBC Hgb Hct MCV MCH MCHC RDW Plt Count MPV Neutrophils % Lymphocytes % Monocytes % Eosinophils % Basophils % ESR Sodium 135 L Potassium 4.0 Chloride 98 Carbon Dioxide 27 Anion Gap 10 BUN 35 H D Creatinine 1.3 Creat Clearance w eGFR 52.22 Random Glucose 119 H D Hemoglobin A1c % 6.4 H D Calcium 7.9 L Magnesium 2.1 Total Bilirubin 1.3 H D AST 17 D ALT 21 D Alkaline Phosphatase 125 H D B-Natriuretic Peptide Total Protein 5.3 L Albumin 2.6 L D Vitamin B12 Active Medications Generic Name Dose Route Start Last Admin Trade Name Freq PRN Reason Stop Dose Admin Budesonide/Formoterol Fumarate 2 puff 07/11/17 10:00 07/13/17 09:52 Symbicort 160/4.5mcg - IH 2 puff BID ROEL Administration Carvedilol 12.5 mg 07/11/17 22:00 07/13/17 09:52 Coreg - PO 12.5 mg BID ROEL Administration Furosemide 80 mg 07/12/17 06:00 07/13/17 06:53 Lasix Injection - IVPUSH 80 mg BIDLASIX ROEL Administration Heparin Sodium (Porcine) 5,000 unit 07/12/17 22:00 07/13/17 09:52 Heparin - SQ 5,000 unit BID ROEL Administration Metformin HCl 500 mg 07/13/17 07:00 07/13/17 06:53 Glucophage - PO 500 mg DAILY@0700 ROEL Administration Oxycodone/Acetaminophen 1 combo 07/12/17 13:13 07/12/17 13:27 Percocet 5/325 - PO 1 combo Q6H PRN Administration PAIN LEVEL 6-10 Spironolactone 25 mg 07/11/17 10:00 07/13/17 09:52 Aldactone - PO 25 mg DAILY ROEL Administration ASSESSMENT/PLAN: This 87 yr old male with c/o LE weakness and who fell at home without hitting his head. He states he drinks every day. ? compliance on meds is questionable. FEN -monitor and replete labs as needed -lasix being given and will need to monitor fo ALISTAIR and electrolytes -ADA diet -daily weights -sq hep daily LE weakness -PT evaluation -CT H neg, Neurology consult appreciated -SCD and heal protectors -repeat CT H, L/S neg for acute and shows chronic changes only -PRN pain meds ordered. ETOH abuse -discussion on going for cessation but pt appears not interested with discussion -psychiatric social worker supervisor consult Cardiac/PPM/CHF -continue Lasix and spiraldactone per home orders -?compliance on meds at home? -appreciate cardiology consult and monitoring -coreg 12.5 mg -hx of AF refusing AC and on ASA only DM -Metformin -sliding scale with coverage -ADA diet 1210 pm addendum Spoke with Dr. Nicole neurologist who saw pt and made recommendations for a further workup based on pt presentation. He feels it would be best to transfer pt to [place] for these tests as they are not readily available at [facility]. Please see his note. Spoke with Nursing Database Administration Project Manager Reece Frances for arrangements of move. Will order what can be done here in mean time. Visit type - Emergency Visit Emergency Visit: Yes ED Registration Date: 07/12/17 Care time: The patient presented to the Emergency Department on the above date and was hospitalized for further evaluation of their emergent condition. - New Patient This patient is new to me today: Yes Date on this admission: 07/13/17 - Critical Care Critical Care patient: No - Discharge Referral Referred to [facility] No
[2017-07-13] MEDS ORDERED: PT OWN MED DRAWER 7, Y5N ONE ×2 (21:26→21:53)
[2017-07-14] MEDS: FUROSEMIDE 40 MG/4 ML INJECTABLE VIAL IVPUSH SCH (06:43)
[2017-07-14] MEDS: metFORMIN HCL 500 MG TABLET (FP) PO SCH (06:43)
[2017-07-14 09:13] LABS: HEMATOCRIT 36.7 % (35.4-49); HEMOGLOBIN 12.4 GM/dl (11.7-16.9); MCH 33.3 pg (25.7-33.7); MCHC 33.9 g/dl (32.0-35.9); MEAN CELL VOLUME 98.1 fl (80-96); MEAN PLT VOLUME 10.2 fl (7.5-11.1); PLATELET COUNT 131 K/MM3 (134-434); RBC 3.74 M/mm3 (4.00-5.60); RDW 13.4 % (11.9-15.9); WHITE BLOOD COUNT 10.9 K/mm3 (4.0-10.8)
[2017-07-14] MEDS ORDERED: PT OWN MED DRAWER 7, Y5N ONE (09:14)
[2017-07-14] MEDS: CYANOCOBALAMIN (VITAMIN B-12) 1000 MCG/1 ML VIAL IM SCH (09:28)
[2017-07-14] MEDS: SPIRONOLACTONE 25 MG TABLET (FP) PO SCH (09:28)
[2017-07-14] MEDS: CARVEDILOL 12.5 MG TABLET (FP) PO SCH ×2 (09:28→22:09)
[2017-07-14] MEDS: HEPARIN NA (PORCINE) 5,000 UNITS/ML 1ML VIAL SQ SCH ×2 (09:28→22:09)
[2017-07-14] MEDS: BUDESONIDE/FORMETEROL FUMARATE 160/4.5 mcg INHALER IH SCH ×2 (09:28→22:45)
[2017-07-14 10:14] LABS: ALBUMIN 2.5 g/dl (3.5-5.0); ALK PHOS 135 U/L (32-92); ANION GAP 11 (8-16); BILIRUBIN,TOTAL 1.3 mg/dl (0.2-1.0); BLOOD UREA NITROGEN 44 mg/dl (7-18); CALCIUM 7.7 mg/dl (8.4-10.2); CHLORIDE 95 mmol/L (98-107); CO2 27 mmol/L (22-28); CREATININE 1.3 mg/dl (0.6-1.3); GLUCOSE,RANDOM 115 mg/dl (74-106); MAGNESIUM 2.1 mg/dL (1.8-2.4); PHOSPHOROUS 3.7 mg/dl (2.5-4.6); POTASSIUM 3.8 mmol/L (3.5-5.1); SGOT/AST 21 U/L (10-42); SGPT/ALT 23 U/L (10-40); SODIUM 133 mmol/L (136-145); TOT PROT 5.3 g/dl (6.4-8.3)
--- NOTE | 2017-07-14 10:18 | PN ---
Physical Exam: SUBJECTIVE: Patient seen and examined. Feels weak, does not think he has improved. OBJECTIVE: Vital Signs Period Temp Pulse Resp BP Sys/Narvaez Pulse Ox Last 24 Hr 98.1 F-99.3 F 54-77 18-20 117-131/41-56 93-99 GENERAL: The patient is awake, alert, and fully oriented, in no acute distress. HEAD: Normal with no signs of trauma. EYES: PERRL, extraocular movements intact, sclera anicteric, conjunctiva clear. No ptosis. ENT: Ears normal, nares patent, oropharynx clear without exudates, moist mucous membranes. NECK: Trachea midline, full range of motion, supple. LUNGS: Breath sounds equal, clear to auscultation bilaterally, no wheezes, no crackles, no accessory muscle use. HEART: Regular rate and rhythm, S1, S2 without murmur, rub or gallop. ABDOMEN: Soft, nontender, nondistended, normoactive bowel sounds, no guarding, no rebound, no hepatosplenomegaly, no masses. EXTREMITIES: 2+ pulses, warm, well-perfused, no edema. 2/5 lower extremity strength bilaterally. NEUROLOGICAL: Cranial nerves II through XII grossly intact. Normal speech, gait not observed. PSYCH: Normal mood, normal affect. SKIN: Warm, dry, normal turgor. Stage II decub sacrum/gluteal cleft, stage I heels. Laboratory Results - last 24 hr 07/13/17 07/13/17 07/14/17 08:00 08:00 07:20 WBC 10.9 H RBC 3.74 L Hgb 12.4 Hct 36.7 MCV 98.1 H MCH 33.3 MCHC 33.9 RDW 13.4 Plt Count 131 L MPV 10.2 Neutrophils % No Result Required. Lymphocytes % No Result Required. ESR 72 H Sodium Potassium Chloride Carbon Dioxide Anion Gap BUN Creatinine Creat Clearance w eGFR Random Glucose Hemoglobin A1c % 6.4 H D Calcium Phosphorus Magnesium Total Bilirubin AST ALT Alkaline Phosphatase Total Protein Albumin 07/14/17 07:20 WBC RBC Hgb Hct MCV MCH MCHC RDW Plt Count MPV Neutrophils % Lymphocytes % ESR Sodium 133 L Potassium 3.8 Chloride 95 L Carbon Dioxide 27 Anion Gap 11 BUN 44 H D Creatinine 1.3 Creat Clearance w eGFR 52.22 Random Glucose 115 H Hemoglobin A1c % Calcium 7.7 L Phosphorus 3.7 Magnesium 2.1 Total Bilirubin 1.3 H AST 21 D ALT 23 Alkaline Phosphatase 135 H Total Protein 5.3 L Albumin 2.5 L Active Medications Generic Name Dose Route Start Last Admin Trade Name Freq PRN Reason Stop Dose Admin Budesonide/Formoterol Fumarate 2 puff 07/11/17 10:00 07/14/17 09:28 Symbicort 160/4.5mcg - IH 2 puff BID ROEL Administration Carvedilol 12.5 mg 07/11/17 22:00 07/14/17 09:28 Coreg - PO 12.5 mg BID ROEL Administration Cyanocobalamin 1,000 mcg 07/14/17 10:00 07/14/17 09:28 Vitamin B12 Injection - IM 07/17/17 10:00 1,000 mcg DAILY ROEL Administration Furosemide 80 mg 07/12/17 06:00 07/14/17 06:43 Lasix Injection - IVPUSH 80 mg BIDLASIX ROEL Administration Heparin Sodium (Porcine) 5,000 unit 07/12/17 22:00 07/14/17 09:28 Heparin - SQ 5,000 unit BID ROEL Administration Metformin HCl 500 mg 07/13/17 07:00 07/14/17 06:43 Glucophage - PO 500 mg DAILY@0700 ROEL Administration Oxycodone/Acetaminophen 1 combo 07/12/17 13:13 07/14/17 09:27 Percocet 5/325 - PO 1 combo Q6H PRN Administration PAIN LEVEL 6-10 Spironolactone 25 mg 07/11/17 10:00 07/14/17 09:28 Aldactone - PO 25 mg DAILY ROEL Administration CBCD WBC 10.9 K/mm3 (4.0-10.8) H 07/14/17 07:20 RBC 3.74 M/mm3 (4.00-5.60) L 07/14/17 07:20 Hgb 12.4 GM/dl (11.7-16.9) 07/14/17 07:20 Hct 36.7 % (35.4-49) 07/14/17 07:20 MCV 98.1 fl (80-96) H 07/14/17 07:20 MCHC 33.9 g/dl (32.0-35.9) 07/14/17 07:20 RDW 13.4 % (11.9-15.9) 07/14/17 07:20 Plt Count 131 K/MM3 (134-434) L 07/14/17 07:20 MPV 10.2 fl (7.5-11.1) 07/14/17 07:20 CMP Sodium 133 mmol/L (136-145) L 07/14/17 07:20 Potassium 3.8 mmol/L (3.5-5.1) 07/14/17 07:20 Chloride 95 mmol/L (98-107) L 07/14/17 07:20 Carbon Dioxide 27 mmol/L (22-28) 07/14/17 07:20 Anion Gap 11 (8-16) 07/14/17 07:20 BUN 44 mg/dl (7-18) H D 07/14/17 07:20 Creatinine 1.3 mg/dl (0.6-1.3) 07/14/17 07:20 Creat Clearance w eGFR 52.22 (>60) 07/14/17 07:20 Calcium 7.7 mg/dl (8.4-10.2) L 07/14/17 07:20 Total Bilirubin 1.3 mg/dl (0.2-1.0) H 07/14/17 07:20 AST 21 U/L (10-42) D 07/14/17 07:20 ALT 23 U/L (10-40) 07/14/17 07:20 Alkaline Phosphatase 135 U/L (32-92) H 07/14/17 07:20 Total Protein 5.3 g/dl (6.4-8.3) L 07/14/17 07:20 Albumin 2.5 g/dl (3.5-5.0) L 07/14/17 07:20 CTH: No significant interval change. 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 There remains generalized volume loss with moderate ventricular dilatation and periventricular chronic microvascular ischemic changes. CT T spine: Minimal compression of L4 superior endplate, likely chronic. Otherwise, no gross acute fracture or subluxation is identified. Mild annular dilatation of the proximal abdominal aorta measuring 3.3 cm in AP dimension. Distally it measures 2.[address] L spine: See discussion above No compression fracture or subluxation is identified. Intervertebral disc spaces are intact. Correlate clinically to determine further evaluation. CT scan of the lumbar spine without intravenous contrast. Coronal and sagittal reconstruction images were obtained. There is straightening of the lumbar spine. Minimal compression of L4 superior endplate, likely chronic without compromise of the spinal canal. Otherwise, the height and alignment of the vertebral bodies appear unremarkable without gross evidence of an acute fracture or subluxation. Moderate bilateral facet hypertrophy at L4-L5 and L5-S1 level. There is no gross narrowing of the spinal canal. However, evaluation of the spinal canal contents are quite limited on this examination due to beam hardening artifacts. No paraspinal soft tissue mild to seen. Vascular calcifications are present. 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 This measures 2.5 cm. Diffuse atheromatous calcified plaques are present down through its bifurcation Xray Knees: Extensive degenerative changes. Possible effusion on left. 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 1. Cards: Systolic CHF with acute exacerbation, pulm HTN -In setting of medication and salt restriction non-compliance -Contine BB, aldactone -Lasix 80mg IV bid -Monitor electrolytes -Daily weights (up 1.3 kg since admission) -Strict I/O (pos balance every day here) -PM interrogation here shows good battery life and normal lead function -No need for telemetry NOTE patient does not have an atrial lead. A-pacing spikes on ekg/telemetry are artifactual, likely due to interference from patient's bladder stimulator pAfib -Rate controlled, continue Coreg -Continue ASA -Patient refuses AC HTN -BP at goal -Continue Lasix, Coreg, Aldactone 2. Neuro: LE weakness -Neurology followind: recommend check LE dopplers (ordered), EMG if possible, CT myelogram, fluoro-guided LP (necessitates transfer to ) -Start b12 supplementation -Continue MVI, folate, thiamine supplementation -Supplement B12 -Rehab placement 3. : Microscopic hematuria -Outpatient urology evaluation 4. Derm: pressure ulcers -Frequent turning -Allevyn sacral dressing -Heel boots 5. Endo: Hyperglycemia -Check HgbA1C -Diabetic diet -Continue home Metformin for now, can change to ISS if needs contrast etc. 6. F/E/N -Mild hyponatremia, follow 7. Ppx -Sqh DISPO: Transfer to [facility] for further workup. Rehab v. SNF placement.
[2017-07-14 13:37] LABS: PLATELET ESTIMATE SLT DECREASE
--- NOTE | 2017-07-14 13:51 | EKG ---
Test Reason : Blood Pressure : / mmHG Vent. Rate : 063 BPM Atrial Rate : 061 BPM P-R Int : 000 ms QRS Dur : 170 ms QT Int : 492 ms P-R-T Axes : 000 -84 106 degrees QTc Int : 503 ms POOR DATA QUALITY, INTERPRETATION MAY BE ADVERSELY AFFECTED Probably Ventricular-paced rhythm with PVC Significant baseline artifact present likely due to electrical interference/noise. Does patient have neurostimulator? ABNORMAL ECG WHEN COMPARED WITH ECG OF 13-NOV-2012 09:22, Recommend repeat ECG Confirmed by ARNULFO TOUSSAINT MD ([id number] on 07/14/2017 1:50:52 PM Referred By: MD WILLS Confirmed By:ARNULFO TOUSSAINT MD
[2017-07-14] MEDS: FUROSEMIDE 40 MG TABLET (FP) PO SCH (15:09)
[2017-07-15] MEDS: FUROSEMIDE 40 MG TABLET (FP) PO SCH ×2 (06:38→14:23)
[2017-07-15] MEDS: metFORMIN HCL 500 MG TABLET (FP) PO SCH (06:38)
[2017-07-15 08:21] LABS: BASO % 0.3 % (0-2.0); EOS % 0.7 % (0-4.5); HEMATOCRIT 37.8 % (35.4-49); HEMOGLOBIN 12.1 GM/dL (11.7-16.9); MCH 31.4 pg (25.7-33.7); MCHC 31.9 g/dl (32.0-35.9); MEAN CELL VOLUME 98.3 fl (80-96); MEAN PLT VOLUME 9.3 fl (7.5-11.1); MONO % 12.2 % (3.8-10.2); NEUT % 77.8 % (42.8-82.8); PLATELET COUNT 151 K/MM3 (134-434); RBC 3.84 M/mm3 (4.00-5.60); RDW 14.3 % (11.9-15.9); WHITE BLOOD COUNT 9.4 K/mm3 (4.0-10.0)
[2017-07-15 08:30] LABS: ANION GAP 7 (8-16); BLOOD UREA NITROGEN 54 mg/dL (7-18); CALCIUM 7.6 mg/dL (8.5-10.1); CHLORIDE 99 mmol/L (98-107); CO2 33 mmol/L (21-32); CREATININE 1.4 mg/dL (0.7-1.3); GLUCOSE,RANDOM 111 mg/dL (74-106); POTASSIUM 4.3 mmol/L (3.5-5.1); SODIUM 139 mmol/L (136-145)
[2017-07-15] MEDS ORDERED: PT OWN MED DRAWER 7, Y5N ONE (11:10)
[2017-07-15] MEDS: CARVEDILOL 12.5 MG TABLET (FP) PO SCH ×2 (11:14→22:12)
[2017-07-15] MEDS: HEPARIN NA (PORCINE) 5,000 UNITS/ML 1ML VIAL SQ SCH ×2 (11:14→22:19)
[2017-07-15] MEDS: SPIRONOLACTONE 25 MG TABLET (FP) PO SCH (11:14)
[2017-07-15] MEDS: CYANOCOBALAMIN (VITAMIN B-12) 1000 MCG/1 ML VIAL IM SCH (11:14)
[2017-07-15] MEDS: BUDESONIDE/FORMETEROL FUMARATE 160/4.5 mcg INHALER IH SCH ×2 (11:15→22:13)
--- NOTE | 2017-07-15 12:27 | CONS ---
DATE OF CONSULTATION: 07/15/2017 HISTORY OF PRESENT ILLNESS: The patient is an 87-year-old man with past medical history of osteoarthritis and daily alcohol intake as well as chronic back pain who was admitted with weakness in the lower extremities to [facility] on July 10 and transferred to [facility] on July 14. The patient states he felt his legs give out and abrupt onset of weakness in the lower extremities. He states he has chronic osteoarthritic knees as well as possibly gout and also a history of congestive heart failure. He drinks 4-5 beers or 5 ounces of bourbon daily. He was evaluated by Neurology, and B12 was found to be borderline in the mid-300s. Started on supplemental B12. He does have some degree of findings in the lower extremities, although the chronicity has not been established. He denies any numbness in his hands but does admit to some weakness, although he notes arthritis also in his hands. Again, he has undergone multiple imaging studies including CT of the head, CT of the lumbar spine, and CT of the thoracic spine on July 12. The CT of the head showed moderate ventricular dilatation but no acute intracranial pathology. Lumbar spine showed no compression fracture in the thoracic spine but minimal L4 compression. There was moderate facet arthropathy at L4-L5 and L5-S1 but no gross narrowing. He did have dilatation of the proximal abdominal aorta but no advanced canal stenosis. He had x-rays of both knees on July 13, which showed extensive degenerative changes, vascular calcification. Blood work showed some leukocytosis initially currently improved from 12.3 to 9.4. As of today's blood work, hemoglobin stable 12.1, platelet count 151, chemistry decreased total protein 5.3, albumin 2.5, again B12 was 347. Otherwise, chemistry done today showed elevated BUN 54, creatinine 1.4 but normal sodium 139, potassium 4.3, chloride 99, and CO2, which was normal. Previously it was slightly elevated at 33. Calcium low at 7.6, hemoglobin A1C borderline to elevated at 6.4. The patient has pain with movement of either of his lower extremities, knees or ankles, but, again, no numbness or tingling in the upper extremities other than difficulty opening jars, but he has weakness and pain throughout the lower extremities and swelling. PAST MEDICAL HISTORY: As above. History of congestive heart failure, osteoarthritis, pressure ulcers, hyperglycemia, alcohol abuse by history, hypertension, paroxysmal atrial fibrillation, permanent pacemaker, bladder stimulator. PAST SURGICAL HISTORY: As above. SOCIAL HISTORY: Per the patient, he lives in a private house. Has a stair lift to get in. Used a cane. Again, current function not able to ambulate. REVIEW OF SYSTEMS: No lightheadedness or dizziness. No blurry vision or double vision. No nausea, vomiting, difficulty swallowing, difficulty chewing. No chest pain. He does get dyspneic with exertion. No abdominal pain. He has got swelling in the lower extremities. No bowel or bladder complaints. He has pain in both lower extremities from the knees distally and decreased sensation. Coldness in his feet. Wears socks to bed. No numbness or tingling in the upper extremities. He does note stiffness in the hands and difficulty opening jars as well as stiffness in both his knees and ankles. PHYSICAL EXAMINATION: General: The patient is seen lying supine on a stretcher. He is in no acute distress at rest, but he certainly has significant discomfort with movement either passively or actively of the lower extremities. HEENT: Normocephalic and atraumatic. Extraocular muscles appear intact. Neck: Supple without any palpable spasm. Limited cervical range of motion. Musculoskeletal: Unable to examine his lumbar spine. He is not really able to come off his back or turn. Extremities: He has edema in the lower extremities. Swelling in both knees and ankles. Vascular changes in the lower extremities particularly in the left lower extremity where he has had prior surgery for osteomyelitis. He has diminished sensation below the knees to pinprick, cold temperature as well as vibratory sense. Also, distally in the fingertips diminished sensation to pinprick but normal cold temperature and vibration. 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 Thenar and hypothenar appears slightly low muscle bulk, and he has limited range in the upper and lower extremities but at least 4/5 to 4+/5 more proximal strength. Lower extremities 1/5 to 2/5 strength, again, limited by pain. Unable to elicit any reflex in the lower extremities. Results of EMG nerve conduction studies, please refer to report for details. OVERALL IMPRESSION: 1. 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 I cannot rule out other etiology such as hyperglycemia. 2. Very limited study. 3. Left moderate carpal tunnel syndrome. 4. No definite lumbosacral radiculopathy in the lower extremities or cervical radiculopathy in the left upper extremity, but this may take 2-3 weeks to establish after onset. 5. Gait disorder. 6. Osteoarthritis of the knees and probably the ankles. 7. Lumbar facet arthropathy. 8. Osteoarthritis of the hands. 9. Rule out concurrent gouty arthropathy. 10. History of alcohol abuse. 11. History of congestive heart failure and cardiomyopathy. 12. Atrial fibrillation. 13. Permanent pacemaker. 14. Obesity. 15. Acute elevated BUN and creatinine, rule out prerenal azotemia. PLAN/SUGGESTION: 1. Physical therapy as able. 2. Neurologic follow up. 3. When able, out of bed to chair. 4. Pain control. 5. Consider orthopaedic consultation or rheumatologic consultation. 6. Weight reduction as able. 7. Monitor nutrition. 8. May require short-term rehabilitation in a shelter facility. 9. Consider DVT prophylaxis. Thank you for this referral. LE CASTILLO M.D. [id number]
--- NOTE | 2017-07-15 13:16 | PN ---
Physical Exam: SUBJECTIVE: Patient seen and examined at the bedside with his daughter in attendance. OBJECTIVE: Left lower extremity slightly rotated to the left, with pain with touch of extremityh will sent hip xray r/o fracture Vital Signs Period Temp Pulse Resp BP Sys/Narvaez Pulse Ox Last 24 Hr 97.3 F-99.1 F 60-86 18-20 103-134/50-80 96-99 GENERAL: The patient is awake, alert, and fully oriented, in no acute distress. HEAD: Normal with no signs of trauma. EYES: PERRL, extraocular movements intact, sclera anicteric, conjunctiva clear. No ptosis. ENT: Ears normal, nares patent, oropharynx clear without exudates, moist mucous membranes. NECK: Trachea midline, full range of motion, supple. LUNGS: Diminished breath sounds bilaterally, no wheezing, no accessory muscle use HEART: Regular rate and rhythm, S1, S2 without murmur, rub or gallop. ABDOMEN: soft, non tender, obese abdomen EXTREMITIES: blateral non pitting edema. left ext. slightly rotated to the left NEUROLOGICAL: Normal speech, gait not observed. PSYCH: Normal mood, normal affect. Laboratory Results - last 24 hr 07/13/17 07/14/17 07/15/17 08:00 07:20 06:37 WBC RBC Hgb Hct MCV MCH MCHC RDW Plt Count MPV Neutrophils % Neutrophils % (Manual) 74.0 Band Neutrophils % 7.0 Lymphocytes % Lymphocytes % (Manual) 8.0 D Monocytes % Monocytes % (Manual) 11 H D Eosinophils % Basophils % Platelet Estimate Slt decrease Platelet Comment Rare giant plts Sodium Potassium Chloride Carbon Dioxide Anion Gap BUN Creatinine POC Glucometer 116 Random Glucose Calcium Vitamin B6 TNP ALEJANDRA Screen Positive H ALEJANDRA Homogeneous Pattern 1:80 ALEJANDRA Nucleolar Pattern TNP ALEJANDRA Midbody Pattern TNP ALEJANDRA Speckled Pattern TNP ALEJANDRA Centromere Pattern TNP 07/15/17 07/15/17 06:45 06:45 WBC 9.4 RBC 3.84 L Hgb 12.1 Hct 37.8 MCV 98.3 H MCH 31.4 MCHC 31.9 L RDW 14.3 Plt Count 151 MPV 9.3 Neutrophils % 77.8 Neutrophils % (Manual) Band Neutrophils % Lymphocytes % 9.0 Lymphocytes % (Manual) Monocytes % 12.2 H Monocytes % (Manual) Eosinophils % 0.7 Basophils % 0.3 Platelet Estimate Platelet Comment Sodium 139 Potassium 4.3 Chloride 99 Carbon Dioxide 33 H Anion Gap 7 L BUN 54 H D Creatinine 1.4 H D POC Glucometer Random Glucose 111 H Calcium 7.6 L Vitamin B6 ALEJANDRA Screen ALEJANDRA Homogeneous Pattern ALEJANDRA Nucleolar Pattern ALEJANDRA Midbody Pattern ALEJANDRA Speckled Pattern ALEJANDRA Centromere Pattern Active Medications Generic Name Dose Route Start Last Admin Trade Name Ronq PRN Reason Stop Dose Admin Budesonide/Formoterol Fumarate 2 puff 07/11/17 10:00 07/15/17 11:15 Symbicort 160/4.5mcg - IH 2 puff BID ROEL Administration Carvedilol 12.5 mg 07/11/17 22:00 07/15/17 11:14 Coreg - PO 12.5 mg BID ROEL Administration Cyanocobalamin 1,000 mcg 07/14/17 10:00 07/15/17 11:14 Vitamin B12 Injection - IM 07/17/17 10:00 1,000 mcg DAILY ROEL Administration Furosemide 80 mg 07/14/17 14:00 07/15/17 06:38 Lasix - PO 80 mg BID@0600,1400 ROEL Administration Heparin Sodium (Porcine) 5,000 unit 07/12/17 22:00 07/15/17 11:14 Heparin - SQ 5,000 unit BID ROEL Administration Metformin HCl 500 mg 07/13/17 07:00 07/15/17 06:38 Glucophage - PO 500 mg DAILY@0700 ROEL Administration Spironolactone 25 mg 07/11/17 10:00 07/15/17 11:14 Aldactone - PO 25 mg DAILY ROEL Administration ASSESSMENT/PLAN: Patient is an 87 year old male with a significant past medical history of systolic CHF, heart block s/p ppm (biotronik, not MRI suitable), prox. aFib (on no anticoagulation / to pt refusal), hypertension, DM, ETOH abuse, chronic venous insufficiency and obesity. Patient presents to the ED on 07/12/2017 with chief complaint of bilateral weakness s/p fall in the bathroom. Patient and daughter both report that patient fell in the bathroom which prompted him to go to the ED, but he has fallen multiple times in the past. He also fell 2 weeks prior when he lost his balance and hit his head. He also states he hurt his back two weeks ago hard when landing on the floor and has been having difficulty ambulating since. On exam, he reports that he is having bilateral knee pain, but is also reporting that his left leg is more painful with movement than the right leg. Imaging CT lumbar spine CT w/o contrast: Minimal compression of L4 superior endplate, likely chronic. No gross acute fracture or subluxation. CT Thoracic spine Ct w/o contrast: No compression fracture or subluxation identified. Right knee xray: loss of bone density, degenerative changes, fabella and some vascular calcifications. May be loose bodies present in the lateral view Left Knee xray: extensive degenerative changes, fabella and possible joint effusion Neuro/Ortho Lower extremity weakness/difficulty ambulating Imaging as noted above Hip xray for left leg pain, s/p fall and left foot/leg slightly rotated to the left Head CT negative As per neuro, pt may need LP Doppler negative EMG possible CT myelogram pending B12 supplementation On MVI, folate, thiamine Rehab, PT following Psyche: ETOH abuse No signs of withdrawal on exam, CIWA score negative Cardiology: Systolic CHF On Lasix and Sprionolactone Cardiology consult On Coreq 12.5mg Monitor orthostatics daily weight, intake and output On daily ASA 81mg Cards following Hypertension BP at goal Monitor Prox afib PPM Refusing anticoags Pt fall risk also Endocrine DM SS, hold metformin Monitor BGMs Diabetic diet F.E.N. Fluids: tolerating PO Electrolytes: monitor Nutrition: diabetic diet Prophyalxis DVT: heparin GI: Protonix Disposition: full code. Visit type - Emergency Visit Emergency Visit: Yes ED Registration Date: 07/12/17 Care time: The patient presented to the Emergency Department on the above date and was hospitalized for further evaluation of their emergent condition. - New Patient This patient is new to me today: Yes Date on this admission: 07/15/17 - Critical Care Critical Care patient: No - Discharge Referral Referred to [facility] Med P.C.: No
[2017-07-15] MEDS ORDERED: ASPIRIN COATED 81 MG TABLET.EC PO SCH (16:00)
--- NOTE | 2017-07-15 17:15 | PN ---
Progress Note, Physician History of Present Illness: 87 year old male with obesity, chronic venous insuff/LE edema, systolic chf ( NICM, likely from etoh abuse), heart block s/p single chamber ppm (Biotronik, vvi), pAfib (refuses AC), HTN, chronic EtOH abuse, 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 states sx started this past friday while he was in bathroom- no LOC. feels he cnat walk in and knees in pain; chronic low back pain and chronic numbness of his feet-- both of these appear no worse from the past. drinks 4 days in week/weekends ( 4 beers with dinner and on weekend a glass of bourbon) CT HD IMPRESSION: No significant interval change. 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 There remains generalized volume loss with moderate ventricular dilatation and periventricular chronic microvascular ischemic changes. IMPRESSION: Minimal compression of L4 superior endplate, likely chronic. Otherwise, no gross acute fracture or subluxation is identified. Mild annular dilatation of the proximal abdominal aorta measuring 3.3 cm in AP dimension. Distally it measures 2.5 cm. IMPRESSION: See discussion above No compression fracture or subluxation is identified. Intervertebral disc spaces are intact. Correlate clinically to determine further evaluation. CT scan of the lumbar spine without intravenous contrast. Coronal and sagittal reconstruction images were obtained. There is straightening of the lumbar spine. Minimal compression of L4 superior endplate, likely chronic without compromise of the spinal canal. Otherwise, the height and alignment of the vertebral bodies appear unremarkable without gross evidence of an acute fracture or subluxation. Moderate bilateral facet hypertrophy at L4-L5 and L5-S1 level. There is no gross narrowing of the spinal canal. However, evaluation of the spinal canal contents are quite limited on this examination due to beam hardening artifacts. No paraspinal soft tissue mild to seen. Vascular calcifications are present. 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 This measures 2.5 cm. Diffuse atheromatous calcified plaques are present down through its bifurcation Neurological: Yes: Alert (awake alert, R facial (old) no focal weakness in UE, mild tremor, no asterxis, LE unable to elevate legs ( IP, quads, hams) ; TA 4+/ 5 --but gives limited effort--pain and tenderess in the knees and ankles and winces to touch/strength testing. reflexes UE 2+, patellar and achilles (-), plantars down, no sesnory level, propr intact. 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 can have a CTA of the T/L spine. In additio will request a l/p under fluoroscopy if CTA without demonstration of spinal art. abn. M.Duc Crouch MD - Current Medication List Current Medications: Active Medications Aspirin (Ecotrin -) 81 mg PO DAILY [facility] Budesonide/Formoterol Fumarate (Symbicort 160/4.5mcg -) 2 puff IH BID [facility] Last Admin: 07/15/17 11:15 Dose: 2 puff Carvedilol (Coreg -) 12.5 mg PO BID [facility] Last Admin: 07/15/17 11:14 Dose: 12.5 mg Cyanocobalamin (Vitamin B12 Injection -) 1,000 mcg IM DAILY [facility] Stop: 07/17/17 10:00 Last Admin: 07/15/17 11:14 Dose: 1,000 mcg Docusate Sodium (Colace -) 100 mg PO TID [facility] Furosemide (Lasix -) 80 mg PO BID@0600,1400 [facility] Last Admin: 07/15/17 14:23 Dose: 80 mg Heparin Sodium (Porcine) (Heparin -) 5,000 unit SQ BID [facility] Last Admin: 07/15/17 11:14 Dose: 5,000 unit Insulin Aspart (Novolog Vial Sliding Scale -) 1 vial SQ ACHS [facility] PRN Reason: Protocol Spironolactone (Aldactone -) 25 mg PO DAILY [facility] Last Admin: 07/15/17 11:14 Dose: 25 mg - Objective Vital Signs: Vital Signs Temperature 97.5 F L 07/15/17 14:00 Pulse Rate 66 07/15/17 14:00 Respiratory Rate 22 07/15/17 14:00 Blood Pressure 146/63 07/15/17 14:00 O2 Sat by Pulse Oximetry (%) 92 L 07/15/17 14:00 Labs: CBC, BMP 07/15/17 06:45 07/15/17 06:45 INR, PTT INR 1.06 (0.82-1.09) 07/10/17 23:30
[2017-07-15] MEDS: INSULIN SLIDING SCALE (NOVOLOG) 1 VIAL SQ SCH ×2 (17:54→22:18)
[2017-07-15] MEDS ORDERED: SODIUM CHLORIDE 500 ML IV SCH (20:30)
[2017-07-15] MEDS: DOCUSATE SODIUM 100 MG CAPSULE (FP) PO SCH (22:12)
[2017-07-16] MEDS: DOCUSATE SODIUM 100 MG CAPSULE (FP) PO SCH ×3 (06:24→22:29)
[2017-07-16] MEDS: FUROSEMIDE 40 MG TABLET (FP) PO SCH ×2 (06:24→14:50)
[2017-07-16] MEDS: INSULIN SLIDING SCALE (NOVOLOG) 1 VIAL SQ SCH ×4 (06:24→22:30)
[2017-07-16 08:07] LABS: BASO % 0.3 % (0-2.0); EOS % 1.3 % (0-4.5); HEMATOCRIT 37.9 % (35.4-49); LYMPH % 9.6 % (8-40); MCH 30.9 pg (25.7-33.7); MCHC 31.6 g/dl (32.0-35.9); MEAN CELL VOLUME 97.8 fl (80-96); MEAN PLT VOLUME 9.1 fl (7.5-11.1); MONO % 11.3 % (3.8-10.2); NEUT % 77.5 % (42.8-82.8); PLATELET COUNT 170 K/MM3 (134-434); RBC 3.88 M/mm3 (4.00-5.60); RDW 14.4 % (11.9-15.9); WHITE BLOOD COUNT 7.5 K/mm3 (4.0-10.0)
[2017-07-16 08:38] LABS: ALBUMIN 2.1 g/dl (3.4-5.0); ALK PHOS 197 U/L (45-117); ANION GAP 8 (8-16); BILIRUBIN,TOTAL 0.7 mg/dL (0.2-1.0); BLOOD UREA NITROGEN 60 mg/dL (7-18); CALCIUM 7.8 mg/dL (8.5-10.1); CHLORIDE 101 mmol/L (98-107); CO2 30 mmol/L (21-32); CREATININE 1.2 mg/dL (0.7-1.3); GLUCOSE,RANDOM 115 mg/dL (74-106); POTASSIUM 4.2 mmol/L (3.5-5.1); SGOT/AST 27 U/L (15-37); SGPT/ALT 33 U/L (12-78); SODIUM 139 mmol/L (136-145); TOT PROT 5.4 g/dl (6.4-8.2)
--- NOTE | 2017-07-16 09:55 | PN ---
Progress Note (short form) - Note Progress Note: 87 year old male with obesity, chronic venous insuff/LE edema, systolic chf ( NICM, likely from etoh abuse), heart block s/p single chamber ppm (Biotronik, vvi), pAfib (refuses AC), HTN, chronic EtOH abuse, 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 states sx started this past friday while he was in bathroom- no LOC. feels he cnat walk in and knees in pain; chronic low back pain and chronic numbness of his feet-- both of these appear no worse from the past. drinks 4 days in week/weekends ( 4 beers with dinner and on weekend a glass of bourbon) CT HD IMPRESSION: No significant interval change. 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 There remains generalized volume loss with moderate ventricular dilatation and periventricular chronic microvascular ischemic changes. IMPRESSION: Minimal compression of L4 superior endplate, likely chronic. Otherwise, no gross acute fracture or subluxation is identified. Mild annular dilatation of the proximal abdominal aorta measuring 3.3 cm in AP dimension. Distally it measures 2.5 cm. IMPRESSION: See discussion above No compression fracture or subluxation is identified. Intervertebral disc spaces are intact. Correlate clinically to determine further evaluation. CT scan of the lumbar spine without intravenous contrast. Coronal and sagittal reconstruction images were obtained. There is straightening of the lumbar spine. Minimal compression of L4 superior endplate, likely chronic without compromise of the spinal canal. Otherwise, the height and alignment of the vertebral bodies appear unremarkable without gross evidence of an acute fracture or subluxation. Moderate bilateral facet hypertrophy at L4-L5 and L5-S1 level. There is no gross narrowing of the spinal canal. However, evaluation of the spinal canal contents are quite limited on this examination due to beam hardening artifacts. No paraspinal soft tissue mild to seen. Vascular calcifications are present. 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 This measures 2.5 cm. Diffuse atheromatous calcified plaques are present down through its bifurcation FU : continues to have weakness in his legs ; no arm weakness, no swallowing issues endorses knee pain and ankle BL chronic numbness of his feet--no worse, no ascending quality - Current Medication List Current Medications: Active Medications Budesonide/Formoterol Fumarate (Symbicort 160/4.5mcg -) 2 puff IH BID [facility] Last Admin: 07/13/17 09:52 Dose: 2 puff Carvedilol (Coreg -) 12.5 mg PO BID [facility] Last Admin: 07/13/17 09:52 Dose: 12.5 mg Furosemide (Lasix Injection -) 80 mg IVPUSH BIDLASIX [facility] Last Admin: 07/13/17 06:53 Dose: 80 mg Heparin Sodium (Porcine) (Heparin -) 5,000 unit SQ BID [facility] Last Admin: 07/13/17 09:52 Dose: 5,000 unit Metformin HCl (Glucophage -) 500 mg PO DAILY@0700 [facility] Last Admin: 07/13/17 06:53 Dose: 500 mg Oxycodone/Acetaminophen (Percocet 5/325 -) 1 combo PO Q6H PRN PRN Reason: PAIN LEVEL 6-10 Last Admin: 07/12/17 13:27 Dose: 1 combo Spironolactone (Aldactone -) 25 mg PO DAILY [facility] Last Admin: 07/13/17 09:52 Dose: 25 mg - Objective Vital Signs: Vital Signs Temperature 97.5 F L 07/16/17 06:00 Pulse Rate 65 07/16/17 06:00 Respiratory Rate 20 07/16/17 06:00 Blood Pressure 133/77 07/16/17 06:00 O2 Sat by Pulse Oximetry (%) 98 07/16/17 06:00 Constitutional: Yes: Well Nourished HENT: Yes: Other (chronic R [place]) Neurological: Yes: Alert (awake alert, R facial (old) no focal weakness in UE, mild tremor, no asterxis, LE unable to elevate legs ( IP, quads, hams) ; TA 4+/ 5 --but gives limited effort--pain and tenderess in the knees and ankles and winces to touch/strength testing. reflexes UE 2+, patellar and achilles (-), plantars down, no sesnory level, propr intact. gait unable) Labs: CBCD WBC 7.5 K/mm3 (4.0-10.0) 07/16/17 07:43 RBC 3.88 M/mm3 (4.00-5.60) L 07/16/17 07:43 Hgb 12.0 GM/dL (11.7-16.9) 07/16/17 07:43 Hct 37.9 % (35.4-49) 07/16/17 07:43 MCV 97.8 fl (80-96) H 07/16/17 07:43 MCHC 31.6 g/dl (32.0-35.9) L 07/16/17 07:43 RDW 14.4 % (11.9-15.9) 07/16/17 07:43 Plt Count 170 K/MM3 (134-434) 07/16/17 07:43 MPV 9.1 fl (7.5-11.1) 07/16/17 07:43 CMP Sodium 139 mmol/L (136-145) 07/16/17 07:43 Potassium 4.2 mmol/L (3.5-5.1) 07/16/17 07:43 Chloride 101 mmol/L (98-107) 07/16/17 07:43 Carbon Dioxide 30 mmol/L (21-32) 07/16/17 07:43 Anion Gap 8 (8-16) 07/16/17 07:43 BUN 60 mg/dL (7-18) H 07/16/17 07:43 Creatinine 1.2 mg/dL (0.7-1.3) 07/16/17 07:43 Creat Clearance w eGFR 57.27 (>60) 07/16/17 07:43 Calcium 7.8 mg/dL (8.5-10.1) L 07/16/17 07:43 Total Bilirubin 0.7 mg/dL (0.2-1.0) 07/16/17 07:43 AST 27 U/L (15-37) D 07/16/17 07:43 ALT 33 U/L (12-78) 07/16/17 07:43 Alkaline Phosphatase 197 U/L (45-117) H D 07/16/17 07:43 Total Protein 5.4 g/dl (6.4-8.2) L 07/16/17 07:43 Albumin 2.1 g/dl (3.4-5.0) L 07/16/17 07:43 Problem List - Problems (1) Fall Code(s): W19.XXXA - UNSPECIFIED FALL, INITIAL ENCOUNTER (2) Weakness Code(s): R53.1 - WEAKNESS (3) Alcohol abuse Code(s): F10.10 - ALCOHOL ABUSE, UNCOMPLICATED (4) CHF (congestive heart failure) Code(s): I50.9 - HEART FAILURE, UNSPECIFIED Qualifiers: Congestive heart failure type: unspecified congestive heart failure type Congestive heart failure chronicity: acute Assessment/Plan 87 year old male with obesity, chronic venous insuff/LE edema, systolic chf ( NICM, likely from etoh abuse), heart block s/p single chamber ppm (Biotronik, vvi), pAfib (refuses AC), HTN, chronic EtOH abuse, 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 states sx started this past friday while he was in bathroom- no LOC. feels he cnat walk in and knees in pain; chronic low back pain and chronic numbness of his feet-- both of these appear no worse from the past. 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 peripheral as their are no long tract pattern on exam; NPH is possibility but would not occur suddenly and cause pain. Stroke would be unusual to cause BL weakness,though anterior spinal cord infarct in differential. he has underlying a neuropathy ( though by HX this appears to be chronic)-- AIDP /GBS a possibility though at this juncture he has preserved UE reflexes. r/o joint issues, Rheumatoid etc +/- DVT Doppler (-) DVT Emg -limited study , +neuropathy , no acute LS radiculopathy, CTS Plan : call ortho- EVAL knees /XRYA etc CT spine angiogram-unable as per radiology; curbside vascular --any further way to eval for cord infarct get flouro-guided LP , check gluc, protein, cell count, cytology b12 supplementation rehab Dr Mendoza Problem List - Problems (1) Fall Code(s): W19.XXXA - UNSPECIFIED FALL, INITIAL ENCOUNTER (2) Weakness Code(s): R53.1 - WEAKNESS (3) Alcohol abuse Code(s): F10.10 - ALCOHOL ABUSE, UNCOMPLICATED (4) CHF (congestive heart failure) Code(s): I50.9 - HEART FAILURE, UNSPECIFIED Qualifiers: Congestive heart failure type: unspecified congestive heart failure type Congestive heart failure chronicity: acute
[2017-07-16] MEDS ORDERED: PT OWN MED DRAWER 7, Y5N ONE ×2 (09:57→20:54)
[2017-07-16] MEDS: SPIRONOLACTONE 25 MG TABLET (FP) PO SCH (10:02)
[2017-07-16] MEDS: CARVEDILOL 12.5 MG TABLET (FP) PO SCH ×2 (10:02→22:29)
[2017-07-16] MEDS: CYANOCOBALAMIN (VITAMIN B-12) 1000 MCG/1 ML VIAL IM SCH (10:03)
[2017-07-16] MEDS: BUDESONIDE/FORMETEROL FUMARATE 160/4.5 mcg INHALER IH SCH ×2 (10:03→22:30)
[2017-07-16] MEDS: HEPARIN NA (PORCINE) 5,000 UNITS/ML 1ML VIAL SQ SCH ×3 (10:04→22:29)
--- NOTE | 2017-07-16 11:24 | PN ---
Physical Exam: SUBJECTIVE: Patient seen and examined. 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 Denies sob. OBJECTIVE: Vital Signs Period Temp Pulse Resp BP Sys/Narvaez Pulse Ox Last 24 Hr 97.5 F-98.2 F 65-77 20-22 133-152/63-77 92-98 PE Neuro: alert, awake, cn 2-12 intact Pulm: clear anteriorly CV: s1 s2 rrr Abd: s nt nd +bs Ext: b/l knee tenderness, venous statsis changes, no edema, MSK: 2/5 motor Laboratory Results - last 24 hr 07/16/17 07/16/17 07/16/17 06:23 07:43 07:43 WBC 7.5 RBC 3.88 L Hgb 12.0 Hct 37.9 MCV 97.8 H MCH 30.9 MCHC 31.6 L RDW 14.4 Plt Count 170 MPV 9.1 Neutrophils % 77.5 Lymphocytes % 9.6 Monocytes % 11.3 H Eosinophils % 1.3 D Basophils % 0.3 Sodium 139 Potassium 4.2 Chloride 101 Carbon Dioxide 30 Anion Gap 8 BUN 60 H Creatinine 1.2 Creat Clearance w eGFR 57.27 POC Glucometer 131 Random Glucose 115 H Calcium 7.8 L Total Bilirubin 0.7 AST 27 D ALT 33 Alkaline Phosphatase 197 H D Total Protein 5.4 L Albumin 2.1 L Rheumatoid Arth Biomark 07/13/17 07/13/17 07/15/17 08:00 08:00 06:45 ESR 72 H Vitamin B6 Vitamin E Rheumatoid Arth [employer]ark 21.5 H ALEJANDRA Screen Positive H ALEJANDRA Homogeneous Pattern 1:80 07/16/17 07/16/17 10:45 10:45 ESR Pending Vitamin B6 Pending Vitamin E Pending Rheumatoid Arth Biomark ALEJANDRA Screen ALEJANDRA Homogeneous Pattern Active Medications Generic Name Dose Route Start Last Admin Trade Name Freq PRN Reason Stop Dose Admin Budesonide/Formoterol Fumarate 2 puff 07/11/17 10:00 07/16/17 10:03 Symbicort 160/4.5mcg - IH 2 puff BID ROEL Administration Carvedilol 12.5 mg 07/11/17 22:00 07/16/17 10:02 Coreg - PO 12.5 mg BID ROEL Administration Cyanocobalamin 1,000 mcg 07/14/17 10:00 07/16/17 10:03 Vitamin B12 Injection - IM 07/17/17 10:00 1,000 mcg DAILY ROEL Administration Docusate Sodium 100 mg 07/15/17 22:00 07/16/17 06:24 Colace - PO 100 mg TID ROEL Administration Furosemide 80 mg 07/14/17 14:00 07/16/17 06:24 Lasix - PO 80 mg BID@0600,1400 ROEL Administration Heparin Sodium (Porcine) 5,000 unit 07/12/17 22:00 07/16/17 10:04 Heparin - SQ Not Given BID [facility] Insulin Aspart 1 vial 07/16/17 10:03 Novolog Vial Sliding Scale - SQ ACHS [facility] Protocol Spironolactone 25 mg 07/11/17 10:00 07/16/17 10:02 Aldactone - PO 25 mg DAILY ROEL Administration Thiamine HCl 100 mg 07/16/17 10:30 Vitamin B1 - PO DAILY [facility] Imaging: Right knee xray: loss of bone density, degenerative changes, fabella and some vascular calcifications. 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 Plan: 1. Lower extremity weakness - For LP today, order CSF protein, glucose, cytology, OB, - Obtain CTAP, chest eval for anterior spinal cord infarct vs aortic dissection , d/w vascular - Obtain b6, b1, vit E levels - Repeat ESR level - EMG noted - Discussed above w/ neuro 2. b/l knee pain - xrays noted above - Consult ortho 3. Systolic CHF - lasix 80mg BID - Sprionolactone 25mg daily - Coreq 12.5mg 4. PAF - PPM, refuses AC - ASA daily 5. DM II - ISS, BGM ACHS 6. ETOH abuse - Thiamine daily 7. ppx - Heparin sq Problem List - Problems (1) Fall Code(s): W19.XXXA - UNSPECIFIED FALL, INITIAL ENCOUNTER (2) Weakness Code(s): R53.1 - WEAKNESS (3) CHF (congestive heart failure) Code(s): I50.9 - HEART FAILURE, UNSPECIFIED Qualifiers: Congestive heart failure type: unspecified congestive heart failure type Congestive heart failure chronicity: acute (4) COPD (chronic obstructive pulmonary disease) Code(s): J44.9 - CHRONIC OBSTRUCTIVE PULMONARY DISEASE, UNSPECIFIED (5) HTN (hypertension) Code(s): I10 - ESSENTIAL (PRIMARY) HYPERTENSION (6) Morbid obesity Code(s): E66.01 - MORBID (SEVERE) OBESITY DUE TO EXCESS CALORIES Visit type - Emergency Visit Emergency Visit: Yes ED Registration Date: 07/12/17 Care time: The patient presented to the Emergency Department on the above date and was hospitalized for further evaluation of their emergent condition. - New Patient This patient is new to me today: No - Critical Care Critical Care patient: No
[2017-07-16 13:21] LABS: GLUCOSE,CSF 84 mg/dL (50-80)
[2017-07-16 13:26] LABS: CSF APPEARANCE CLEAR; CSF COLOR COLORLESS; CSF WBC 0
[2017-07-16 14:36] LABS: GLUCOSE,CSF 84 mg/dL (50-80)
[2017-07-16] MEDS: THIAMINE HCL 100 MG TABLET (FP) PO SCH (14:50)
[2017-07-16] MEDS ORDERED: INSULIN (NOVOLOG) ASPART 100 UNITS/ML 10ML VIAL ONE (20:54)
--- NOTE | 2017-07-16 20:58 | PN ---
Progress Note (short form) - Note Progress Note: Chief Complaint: leg weakness History of Present Illness: no sob, cp, palpit, orthopnea, dizziness, worsening leg swelling. + weakness persists, can't stand. Had LP today and ct scan. Current Medications Budesonide/Formoterol Fumarate (Symbicort 160/4.5mcg -) 2 puff IH BID [facility] Last Admin: 07/16/17 10:03 Dose: 2 puff Carvedilol (Coreg -) 12.5 mg PO BID [facility] Last Admin: 07/16/17 10:02 Dose: 12.5 mg Cyanocobalamin (Vitamin B12 Injection -) 1,000 mcg IM DAILY [facility] Stop: 07/17/17 10:00 Last Admin: 07/16/17 10:03 Dose: 1,000 mcg Docusate Sodium (Colace -) 100 mg PO TID [facility] Last Admin: 07/16/17 14:50 Dose: 100 mg Furosemide (Lasix -) 80 mg PO BID@0600,1400 [facility] Last Admin: 07/16/17 14:50 Dose: 80 mg Heparin Sodium (Porcine) (Heparin -) 5,000 unit SQ TID [facility] Last Admin: 07/16/17 16:42 Dose: Not Given Insulin Aspart (Novolog Vial Sliding Scale -) 1 vial SQ ACHS [facility] PRN Reason: Protocol Last Admin: 07/16/17 16:58 Dose: Not Given Spironolactone (Aldactone -) 25 mg PO DAILY [facility] Last Admin: 07/16/17 10:02 Dose: 25 mg Thiamine HCl (Vitamin B1 -) 100 mg PO DAILY [facility] Last Admin: 07/16/17 14:50 Dose: 100 mg - Objective Vital Signs: Vital Signs - 24 hr 07/15/17 07/15/17 07/16/17 21:00 22:00 02:00 Temperature 97.5 F L 98.2 F Pulse Rate 77 69 Respiratory 22 20 Rate Blood Pressure 152/74 141/70 O2 Sat by Pulse 96 96 96 Oximetry (%) 07/16/17 07/16/17 07/16/17 06:00 10:00 14:00 Temperature 97.5 F L 97.3 F L Pulse Rate 65 59 L 67 Respiratory 20 20 Rate Blood Pressure 133/77 154/62 O2 Sat by Pulse 98 97 Oximetry (%) 07/16/17 07/16/1707/16/18 14:29 17:34 18:00 Temperature 97.8 F 97.6 F Pulse Rate 62 75 Respiratory 22 20 Rate Blood Pressure 146/94 134/71 O2 Sat by Pulse 98 Oximetry (%) Intake & Output 07/14/17 07/15/17 07/16/17 07/17/17 07:59 07:59 07:59 07:59 Intake Total 900 1150 1765 1179 Output Total 2550 600 Balance 900 1150 -785 579 Weight 283 lb 0.3 oz 286 lb 0.8 oz nad, calm no jvd, neck supple rrr s1s2 no mrg + displaced pmi ctab, nl effort pos bs, obese nt nd , no hsm trace le edema b/l with chronic stasis changes. no cyanosis, clubbing diminished dp/pt no carotid bruit no jaundice/diaphoresis aaox3 Labs: CBC, BMP 07/16/17 07:43 07/16/17 07:43 Laboratory Tests 07/14/17 07/15/17 07/16/17 07:20 06:45 07:43 ESR Creatinine 1.4 H D Total Bilirubin 1.3 H 0.7 AST 27 D ALT 33 Alkaline Phosphatase 135 H 197 H D Albumin 2.1 L 07/16/17 10:45 ESR 91 H Creatinine Total Bilirubin AST ALT Alkaline Phosphatase Albumin - ....Imaging EKG: Other (prior tele: prob NSR, much baseline artifact (due to bladder stim). no tachy) Assessment/Plan ekg: v paced, underlying atrial artifact likely due to interference from patient 's bladder stimulator cxr: clear lungs, suboptimal visualization of left lung base. head ct: no acute pathology CT c/a/p: images and report reveiwed. mild thoracic aorta dilation, greatest diameter 4.3 cm. diffuse increased interstitial markings c/w chronic lung disease. mild basilar atelectasis. atrophic kidneys. heavy aortic atherosclerosis. see emr for full report. BLE dopplers: neg for dvt Echo 02/2017: lvef 45-50%, global hk, mild lve, mild lvh, nl rv, mod cecilio, mild mr, mod tr, mild ar, mod phtn, ao root mildly dilated echo 02/2015: mild lve, mild conc lvh, lvef 30-35% with global hk, rv mild dilated with nl fcn, cecilio, mild-mod mr, mod tr, mild-mod ar, rvsp 53, mild ao root dil mibi 08/2014: persantine, no ischemia/scar, lvef 41% Assessment/Plan 87 yo with h/o obesity, chronic venous insuff/le edema, systolic chf (NICM, likely from etoh abuse), heart block s/p single chamber ppm (biotronik, vvi), pafib (refuses AC), htn, etoh abuse, urinary retention s/p implantation of bladder stimulator 02/2016 presents with weakness/fall. 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 WHO 3 component (ANSHU?)): - Pt has history of dchf and superimposed NICM thought to be secondary to etoh, with coexisting mod-severe pulmonary hypertension and chronic LE edema. - His management has been complicated by poor compliance with meds and salt restriction - currently presenting with Rt > Lt CHF (JVD, edema, clear cxr) in setting of admitted med noncompliance and etoh abuse. BNP 2K (range 1K-9K). - Dry weight unclear but likely close to 280 lbs or less. On past admissions has been diuresed with lasix 80 mg IV bid--resumed same regimen here. - 07/12: wt declining (283), labs stable (bicarb rising slightly). same diuretic regimen today, reassess in AM--anticipate will change to po lasix regimen tomorrow - 07/16: changed to lasix 80 mg PO bid, on 07/14 (pm dose). bmp overall stable. weight slightly up today on bedscale (weakness preventing standing weight), but net negative with good uop. con't to monitor, if weight still rising tomorrow, reassess volume status and need to adjust po regimen. - No signs of ACS, trops negx1. EKG v-paced - con't bb, aldactone. had self-dc'd acei in the past --> later started on hydralazine/imdur --> had to be stopped in past due to hypotension/dizziness/ falls. acute LE weakness, fall: - pt states his knee buckled. - being evaluated by neuro. s/p LP - per neuro note, suspicion of TIA/CVA is low. If TIA/CVA diagnosed or suspected by neuro, pt must be made aware that his risk of recurrent CVA is very high unless he either agrees to AC or to Watchman procedure single chamber ppm (biotronik, vvi): - interrogation here shows good battery life and nl lead function. - NOTE patient does not have an atrial lead. A-pacing spikes on ekg/telemetry are artifactual, likely due to interference from patient's bladder stimulator. --> d/c telemetry since artifact is also present on telemetry. pafib: - rate controlled and s/p ppm. con't coreg (office notes report dose as 12.5 bid) - He has refused ac on multiple occasions (and is a poor candidate regardless given his noncompliance). ASA held for LP --> resume when safe. - ? if dr biggs has discussed Watchman device with pt in office--defer to routine f/u htn: - bp controlled on current regimen. cont to monitor. - same plan etoh abuse: - repeatedly counselled on cessation re: risks of falls, head injury, spontaneous ICH on prior admits here, but he has refused cessation efforts - per pmd mild ao dilation/atherosclerosis noted on ct - con't bb, mgm't of bp. - holding asa as mentioned. reasonable to defer statin given age and ongoing evaluation of weakness.
[2017-07-17] MEDS: HEPARIN NA (PORCINE) 5,000 UNITS/ML 1ML VIAL SQ SCH ×3 (06:49→21:15)
[2017-07-17] MEDS: DOCUSATE SODIUM 100 MG CAPSULE (FP) PO SCH ×3 (06:49→21:15)
[2017-07-17] MEDS: FUROSEMIDE 40 MG TABLET (FP) PO SCH ×3 (06:50→15:39)
[2017-07-17] MEDS: INSULIN SLIDING SCALE (NOVOLOG) 1 VIAL SQ SCH ×4 (07:00→21:31)
[2017-07-17] MEDS ORDERED: INSULIN DETEMIR 100 UNITS/ML MDV SQ ONE (07:18)
[2017-07-17] MEDS ORDERED: INSULIN (NOVOLOG) ASPART 100 UNITS/ML 10ML VIAL ONE ×3 (07:18→21:02)
[2017-07-17 09:01] LABS: ANION GAP 10 (8-16); BLOOD UREA NITROGEN 55 mg/dL (7-18); CALCIUM 7.8 mg/dL (8.5-10.1); CHLORIDE 101 mmol/L (98-107); CO2 30 mmol/L (21-32); POTASSIUM 4.2 mmol/L (3.5-5.1); SODIUM 141 mmol/L (136-145)
[2017-07-17 09:07] LABS: ALK PHOS 206 U/L (45-117); GLUCOSE,RANDOM 100 mg/dL (74-106); SGOT/AST 27 U/L (15-37); SGPT/ALT 32 U/L (12-78); TOT PROT 5.3 g/dl (6.4-8.2)
[2017-07-17] MEDS: CARVEDILOL 12.5 MG TABLET (FP) PO SCH ×2 (10:36→21:15)
[2017-07-17] MEDS: THIAMINE HCL 100 MG TABLET (FP) PO SCH (10:36)
[2017-07-17] MEDS: CYANOCOBALAMIN (VITAMIN B-12) 1000 MCG/1 ML VIAL IM SCH (10:37)
[2017-07-17] MEDS: SPIRONOLACTONE 25 MG TABLET (FP) PO SCH (10:37)
[2017-07-17] MEDS: BUDESONIDE/FORMETEROL FUMARATE 160/4.5 mcg INHALER IH SCH ×2 (10:37→21:15)
[2017-07-17] MEDS ORDERED: PT OWN MED DRAWER 7, Y5N ONE (11:11)
[2017-07-17] MEDS ORDERED: oxyCODONE HCL 5 MG TABLET PO PRN (11:32)
--- NOTE | 2017-07-17 13:51 | CON.ORTH ---
Consult Consult Specialty:: orthopedics - History of Present Illness Chief Complaint: LE pain and weakness History of Present Illness: 87y M previously seen in office admitted for fall and LE weakness -being worked up for neurologic causes at this point -notes pain in both knees and both ankles -states he is not feeling any better at this point -no radiating pain, numbness or tingling - History Source History Provided By: Patient, Medical Record - Past Medical History [place]: Yes: Other (shields's palsy) Cardio/Vascular: Yes: AFIB (anticoagulation, including ASA, declined), CHF, HTN Pulmonary: Yes: Asthma, COPD Musculoskeletal: Yes: Osteoarthritis Rheumatology: Yes: Gout Endocrine: Yes: Diabetes Mellitus, Other (obesity) - Past Surgical History Past Surgical History: Yes: Cataract Removal, Permanent Pacemaker - Alcohol/Substance Use Hx Alcohol Use: Yes (EVERYDAY) History of Substance Use: reports: None - Smoking History Smoking history: Unknown if ever smoked Have you smoked in the past 12 months: No Aproximately how many cigarettes per day: 40 If you are a former smoker, when did you quit?: 50 YEARS AGO - Social History ADL: Independent Occupation: Retired- [employer] History of Recent Travel: No Home Medications - Allergies Allergies/Adverse Reactions: Allergies Allergy/AdvReac Type Severity Reaction Status Date / Time No Known Drug Allergies Allergy Verified 12/18/15 03:22 Family Disease History - Family Disease History Family Disease History: Other: Father ( 83 COPD), Mother ( 66 brain tumor) Physical Exam for Ortho Vital Signs: Vital Signs Temperature 98.0 F 07/17/17 09:34 Pulse Rate 64 07/17/17 10:00 Respiratory Rate 18 07/17/17 09:34 Blood Pressure 143/70 07/17/17 09:34 O2 Sat by Pulse Oximetry (%) 98 07/17/17 10:00 Constitutional: Yes: No Distress, Calm, Obese Respiratory: Yes: Regular, On Nasal O2 Extremities: Yes: Other (Exam of bilateral LE shows no pain on log roll. Both knees with ROM 10-50. Painful ROM. No chavo effusions either side. Both legs warm from knees to ankles. Ankles no pain with ROM and nontender. Both LE with significant edema. Pulses not palpable secondary to swelling. EHL FHL TA G S intact.) Labs: CBC, BMP 07/16/17 07:43 07/17/17 06:20 INR, PTT INR 1.06 (0.82-1.09) 07/10/17 23:30 Imaging - Results X-ray: Report Reviewed, Image Reviewed (Hip, knee films reviewed. Moderate hip DJD. Severe knee DJD.) Problem List - Problems (1) Osteoarthritis of knees, bilateral Assessment/Plan: I reviewed today's findings with Ed -advised that I see no acute changes in his joints -he does have severe knee and moderate hip osteoarthritis which are likely a factor in his walking dysfunction but should not have caused an acute worsening -recommend PT -labs due show inflammatory elevations, can consider rheum eval -to follow up as outpatient Code(s): M17.0 - BILATERAL PRIMARY OSTEOARTHRITIS OF KNEE Qualifiers: Osteoarthritis type: primary Qualified Code(s): M17.0 - Bilateral primary osteoarthritis of knee
--- NOTE | 2017-07-17 16:39 | PN ---
Progress Note (short form) - Note Progress Note: 87 year old male with obesity, chronic venous insuff/LE edema, systolic chf ( NICM, likely from etoh abuse), heart block s/p single chamber ppm (Biotronik, vvi), pAfib (refuses AC), HTN, chronic EtOH abuse, 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 states sx started this past friday while he was in bathroom- no LOC. feels he cnat walk in and knees in pain; chronic low back pain and chronic numbness of his feet-- both of these appear no worse from the past. drinks 4 days in week/weekends ( 4 beers with dinner and on weekend a glass of bourbon) CT HD IMPRESSION: No significant interval change. 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 There remains generalized volume loss with moderate ventricular dilatation and periventricular chronic microvascular ischemic changes. IMPRESSION: Minimal compression of L4 superior endplate, likely chronic. Otherwise, no gross acute fracture or subluxation is identified. Mild annular dilatation of the proximal abdominal aorta measuring 3.3 cm in AP dimension. Distally it measures 2.5 cm. IMPRESSION: See discussion above No compression fracture or subluxation is identified. Intervertebral disc spaces are intact. Correlate clinically to determine further evaluation. CT scan of the lumbar spine without intravenous contrast. Coronal and sagittal reconstruction images were obtained. There is straightening of the lumbar spine. Minimal compression of L4 superior endplate, likely chronic without compromise of the spinal canal. Otherwise, the height and alignment of the vertebral bodies appear unremarkable without gross evidence of an acute fracture or subluxation. Moderate bilateral facet hypertrophy at L4-L5 and L5-S1 level. There is no gross narrowing of the spinal canal. However, evaluation of the spinal canal contents are quite limited on this examination due to beam hardening artifacts. No paraspinal soft tissue mild to seen. Vascular calcifications are present. 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 This measures 2.5 cm. Diffuse atheromatous calcified plaques are present down through its bifurcation FU : LP reviewed- Protein 63 (not sig. elevated) CT scans reviewed-no dissection ortho eval reviewed-- DJD continues to have weakness in his legs ; no arm weakness, no swallowing issues endorses knee pain and ankle BL chronic numbness of his feet--no worse, no ascending quality - Current Medication List Current Medications: Active Medications Budesonide/Formoterol Fumarate (Symbicort 160/4.5mcg -) 2 puff IH BID [facility] Last Admin: 07/13/17 09:52 Dose: 2 puff Carvedilol (Coreg -) 12.5 mg PO BID [facility] Last Admin: 07/13/17 09:52 Dose: 12.5 mg Furosemide (Lasix Injection -) 80 mg IVPUSH BIDLASIX [facility] Last Admin: 07/13/17 06:53 Dose: 80 mg Heparin Sodium (Porcine) (Heparin -) 5,000 unit SQ BID [facility] Last Admin: 07/13/17 09:52 Dose: 5,000 unit Metformin HCl (Glucophage -) 500 mg PO DAILY@0700 [facility] Last Admin: 07/13/17 06:53 Dose: 500 mg Oxycodone/Acetaminophen (Percocet 5/325 -) 1 combo PO Q6H PRN PRN Reason: PAIN LEVEL 6-10 Last Admin: 07/12/17 13:27 Dose: 1 combo Spironolactone (Aldactone -) 25 mg PO DAILY [facility] Last Admin: 07/13/17 09:52 Dose: 25 mg - Objective Vital Signs: Vital Signs Temperature 97.5 F L 07/16/17 06:00 Pulse Rate 65 07/16/17 06:00 Respiratory Rate 20 07/16/17 06:00 Blood Pressure 133/77 07/16/17 06:00 O2 Sat by Pulse Oximetry (%) 98 07/16/17 06:00 Constitutional: Yes: Well Nourished HENT: Yes: Other (chronic R [place]) Neurological: Yes: Alert (awake alert, R facial (old) no focal weakness in UE, mild tremor, no asterxis, LE unable to elevate legs ( IP, quads, hams) ; TA 4+/ 5 --but gives limited effort--pain and tenderess in the knees and ankles and winces to touch/strength testing. reflexes UE 2+, patellar and achilles (-), plantars down, no sesnory level, propr intact. gait unable) Labs: CBCD WBC 7.5 K/mm3 (4.0-10.0) 07/16/17 07:43 RBC 3.88 M/mm3 (4.00-5.60) L 07/16/17 07:43 Hgb 12.0 GM/dL (11.7-16.9) 07/16/17 07:43 Hct 37.9 % (35.4-49) 07/16/17 07:43 MCV 97.8 fl (80-96) H 07/16/17 07:43 MCHC 31.6 g/dl (32.0-35.9) L 07/16/17 07:43 RDW 14.4 % (11.9-15.9) 07/16/17 07:43 Plt Count 170 K/MM3 (134-434) 07/16/17 07:43 MPV 9.1 fl (7.5-11.1) 07/16/17 07:43 CMP Sodium 139 mmol/L (136-145) 07/16/17 07:43 Potassium 4.2 mmol/L (3.5-5.1) 07/16/17 07:43 Chloride 101 mmol/L (98-107) 07/16/17 07:43 Carbon Dioxide 30 mmol/L (21-32) 07/16/17 07:43 Anion Gap 8 (8-16) 07/16/17 07:43 BUN 60 mg/dL (7-18) H 07/16/17 07:43 Creatinine 1.2 mg/dL (0.7-1.3) 07/16/17 07:43 Creat Clearance w eGFR 57.27 (>60) 07/16/17 07:43 Calcium 7.8 mg/dL (8.5-10.1) L 07/16/17 07:43 Total Bilirubin 0.7 mg/dL (0.2-1.0) 07/16/17 07:43 AST 27 U/L (15-37) D 07/16/17 07:43 ALT 33 U/L (12-78) 07/16/17 07:43 Alkaline Phosphatase 197 U/L (45-117) H D 07/16/17 07:43 Total Protein 5.4 g/dl (6.4-8.2) L 07/16/17 07:43 Albumin 2.1 g/dl (3.4-5.0) L 07/16/17 07:43 Problem List - Problems (1) Fall Code(s): W19.XXXA - UNSPECIFIED FALL, INITIAL ENCOUNTER (2) Weakness Code(s): R53.1 - WEAKNESS (3) Alcohol abuse Code(s): F10.10 - ALCOHOL ABUSE, UNCOMPLICATED (4) CHF (congestive heart failure) Code(s): I50.9 - HEART FAILURE, UNSPECIFIED Qualifiers: Congestive heart failure type: unspecified congestive heart failure type Congestive heart failure chronicity: acute Assessment/Plan 87 year old male with obesity, chronic venous insuff/LE edema, systolic chf ( NICM, likely from etoh abuse), heart block s/p single chamber ppm (Biotronik, vvi), pAfib (refuses AC), HTN, chronic EtOH abuse, 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 states sx started this past friday while he was in bathroom- no LOC. feels he cnat walk in and knees in pain; chronic low back pain and chronic numbness of his feet-- both of these appear no worse from the past. 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 -- suspect multifactorial -- knee pain limits movements no clear signs of GBS , protein not sig elevated doppler LE (-) CT -no dissection, unable to get CTA angiogram of spine, though there would be no official treatment if this were cord infarct knee OA/DJD, neuropathy, chronic deconditioning /LE edema all at play await neuropthy RAHMAN , ESR elevated unclear sig --rheum eval rehab planning Dr Mendoza Problem List - Problems (1) Fall Code(s): W19.XXXA - UNSPECIFIED FALL, INITIAL ENCOUNTER (2) Weakness Code(s): R53.1 - WEAKNESS (3) Alcohol abuse Code(s): F10.10 - ALCOHOL ABUSE, UNCOMPLICATED (4) CHF (congestive heart failure) Code(s): I50.9 - HEART FAILURE, UNSPECIFIED Qualifiers: Congestive heart failure type: unspecified congestive heart failure type Congestive heart failure chronicity: acute
--- NOTE | 2017-07-17 20:27 | PN ---
Progress Note (short form) - Note Progress Note: Chief Complaint: leg weakness History of Present Illness: no sob, cp, palpit, orthopnea, dizziness, worsening leg swelling. + weakness persists, can't stand. Current Medications Acetaminophen (Tylenol -) 325 mg PO Q6H PRN PRN Reason: PAIN LEVEL 4 - 6 Budesonide/Formoterol Fumarate (Symbicort 160/4.5mcg -) 2 puff IH BID [facility] Last Admin: 07/17/17 10:37 Dose: 2 puff Carvedilol (Coreg -) 12.5 mg PO BID [facility] Last Admin: 07/17/17 10:36 Dose: 12.5 mg Docusate Sodium (Colace -) 100 mg PO TID [facility] Last Admin: 07/17/17 15:30 Dose: 100 mg Furosemide (Lasix -) 80 mg PO BID@0600,1400 [facility] Last Admin: 07/17/17 15:39 Dose: 80 mg Heparin Sodium (Porcine) (Heparin -) 5,000 unit SQ TID [facility] Last Admin: 07/17/17 15:31 Dose: 5,000 unit Insulin Aspart (Novolog Vial Sliding Scale -) 1 vial SQ ACHS [facility] PRN Reason: Protocol Last Admin: 07/17/17 17:45 Dose: 2 units Oxycodone HCl (Roxicodone -) 5 mg PO Q6H PRN PRN Reason: PAIN LEVEL 4 - 6 Oxycodone HCl (Roxicodone -) 10 mg PO Q4H PRN PRN Reason: PAIN LEVEL 6-10 Spironolactone (Aldactone -) 25 mg PO DAILY [facility] Last Admin: 07/17/17 10:37 Dose: 25 mg Thiamine HCl (Vitamin B1 -) 100 mg PO DAILY [facility] Last Admin: 07/17/17 10:36 Dose: 100 mg Vital Signs - 24 hr 07/16/17 07/16/17 07/17/17 21:00 22:00 02:00 Temperature 97.6 F Pulse Rate 78 78 76 Respiratory 20 Rate Blood Pressure 137/82 O2 Sat by Pulse 98 98 97 Oximetry (%) 07/17/17 07/17/17 07/17/17 05:59 06:00 09:34 Temperature 98.1 F 98.0 F Pulse Rate 70 61 64 Respiratory 20 18 Rate Blood Pressure 127/52 143/70 O2 Sat by Pulse 98 Oximetry (%) 07/17/17 07/17/17 07/17/17 10:00 14:00 14:55 Temperature 98.4 F Pulse Rate 64 65 63 Respiratory 22 Rate Blood Pressure 103/56 O2 Sat by Pulse 98 98 Oximetry (%) 07/17/17 07/17/17 15:38 18:00 Temperature 98.7 F Pulse Rate 65 65 Respiratory 18 Rate Blood Pressure 149/76 130/68 O2 Sat by Pulse 98 Oximetry (%) Intake & Output 07/15/17 07/16/17 07/17/17 07/18/17 07:59 07:59 07:59 07:59 Intake Total 1150 1765 1179 1020 Output Total 2550 2300 1000 Balance 1150 -535 -1121 20 Weight 286 lb 0.8 oz 275 lb 3.2 oz nad, calm no jvd, neck supple rrr s1s2 no mrg + displaced pmi ctab, nl effort pos bs, obese nt nd , no hsm trace le edema b/l with chronic stasis changes. no cyanosis, clubbing diminished dp/pt no carotid bruit no jaundice/diaphoresis aaox3 Labs: CBC, BMP 07/16/17 07:43 07/17/17 06:20 - ....Imaging EKG: Other (prior tele: prob NSR, much baseline artifact (due to bladder stim). no tachy) Assessment/Plan ekg: v paced, underlying atrial artifact likely due to interference from patient 's bladder stimulator cxr: clear lungs, suboptimal visualization of left lung base. head ct: no acute pathology CT c/a/p: images and report reveiwed. mild thoracic aorta dilation, greatest diameter 4.3 cm. diffuse increased interstitial markings c/w chronic lung disease. mild basilar atelectasis. atrophic kidneys. heavy aortic atherosclerosis. see emr for full report. BLE dopplers: neg for dvt Echo 02/2017: lvef 45-50%, global hk, mild lve, mild lvh, nl rv, mod cecilio, mild mr, mod tr, mild ar, mod phtn, ao root mildly dilated echo 02/2015: mild lve, mild conc lvh, lvef 30-35% with global hk, rv mild dilated with nl fcn, cecilio, mild-mod mr, mod tr, mild-mod ar, rvsp 53, mild ao root dil mibi 08/2014: persantine, no ischemia/scar, lvef 41% Assessment/Plan 87 yo with h/o obesity, chronic venous insuff/le edema, systolic chf (NICM, likely from etoh abuse), heart block s/p single chamber ppm (biotronik, vvi), pafib (refuses AC), htn, etoh abuse, urinary retention s/p implantation of bladder stimulator 02/2016 presents with weakness/fall. 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 WHO 3 component (ANSHU?)): - Pt has history of dchf and superimposed NICM thought to be secondary to etoh, with coexisting mod-severe pulmonary hypertension and chronic LE edema. - His management has been complicated by poor compliance with meds and salt restriction - currently presenting with Rt > Lt CHF (JVD, edema, clear cxr) in setting of admitted med noncompliance and etoh abuse. BNP 2K (range 1K-9K). - Dry weight unclear but likely close to 280 lbs or less. On past admissions has been diuresed with lasix 80 mg IV bid--resumed same regimen here. - 07/12: wt declining (283), labs stable (bicarb rising slightly). same diuretic regimen today, reassess in AM--anticipate will change to po lasix regimen tomorrow - 07/16: changed to lasix 80 mg PO bid, on 07/14 (pm dose). bmp overall stable. weight slightly up today on bedscale (weakness preventing standing weight), but net negative with good uop. con't to monitor, if weight still rising tomorrow, reassess volume status and need to adjust po regimen. - 07/17: appears euvolemic on po regimen. weight down. con't same mgm't - No signs of ACS, trops negx1. EKG v-paced - con't bb, aldactone. had self-dc'd acei in the past --> later started on hydralazine/imdur --> had to be stopped in past due to hypotension/dizziness/ falls. acute LE weakness, fall: - pt states his knee buckled. - being evaluated by neuro. s/p LP - per neuro note, suspicion of TIA/CVA is low. If TIA/CVA diagnosed or suspected by neuro, pt must be made aware that his risk of recurrent CVA is very high unless he either agrees to AC or to Watchman procedure single chamber ppm (biotronik, vvi): - interrogation here shows good battery life and nl lead function. - NOTE patient does not have an atrial lead. A-pacing spikes on ekg/telemetry are artifactual, likely due to interference from patient's bladder stimulator. --> d/c's telemetry since artifact is also present on telemetry. pafib: - rate controlled and s/p ppm. con't coreg (office notes report dose as 12.5 bid) - He has refused ac on multiple occasions (and is a poor candidate regardless given his noncompliance). ASA held for LP --> resume when safe. - ? if dr biggs has discussed Watchman device with pt in office--defer to routine f/u htn: - bp controlled on current regimen. cont to monitor. - same plan etoh abuse: - repeatedly counselled on cessation re: risks of falls, head injury, spontaneous ICH on prior admits here, but he has refused cessation efforts - per pmd mild ao dilation/atherosclerosis noted on ct - con't bb, mgm't of bp. - holding asa as mentioned. reasonable to defer statin given age and ongoing evaluation of weakness.
[2017-07-18] MEDS: HEPARIN NA (PORCINE) 5,000 UNITS/ML 1ML VIAL SQ SCH ×3 (06:24→21:38)
[2017-07-18] MEDS: DOCUSATE SODIUM 100 MG CAPSULE (FP) PO SCH ×3 (06:24→21:38)
[2017-07-18] MEDS: FUROSEMIDE 40 MG TABLET (FP) PO SCH ×2 (06:24→14:25)
[2017-07-18] MEDS: INSULIN SLIDING SCALE (NOVOLOG) 1 VIAL SQ SCH ×4 (06:27→21:38)
[2017-07-18] MEDS ORDERED: PT OWN MED DRAWER 7, Y5N ONE ×2 (09:45→21:03)
[2017-07-18] MEDS: BUDESONIDE/FORMETEROL FUMARATE 160/4.5 mcg INHALER IH SCH ×2 (09:51→21:38)
[2017-07-18] MEDS: THIAMINE HCL 100 MG TABLET (FP) PO SCH (09:52)
[2017-07-18] MEDS: CARVEDILOL 12.5 MG TABLET (FP) PO SCH ×2 (09:52→21:37)
[2017-07-18] MEDS: SPIRONOLACTONE 25 MG TABLET (FP) PO SCH (09:52)
[2017-07-18] MEDS: ACETAMINOPHEN 325 MG TABLET (FP) PO PRN (10:52)
[2017-07-18] MEDS: oxyCODONE HCL 5 MG TABLET PO PRN (10:52)
--- NOTE | 2017-07-18 14:16 | PN ---
Physical Exam: SUBJECTIVE: Patient seen and examined. Still c/o knee pain and weakness. Decreased movement d/t pain OBJECTIVE: Vital Signs Period Temp Pulse Resp BP Sys/Narvaez Pulse Ox Last 24 Hr 98.3 F-98.7 F 60-67 18-22 103-149/52-77 98-99 PE Neuro: alert, awake, cn 2-12 intact Pulm: clear anteriorly CV: s1 s2 rrr Abd: s nt nd +bs Ext: b/l knee tenderness, venous statsis changes, no edema MSK: 2/5 motor Laboratory Results - last 24 hr 07/17/17 07/17/17 07/18/17 17:45 21:17 06:26 POC Glucometer 155 116 123 07/18/17 12:13 POC Glucometer 122 Active Medications Generic Name Dose Route Start Last Admin Trade Name Freq PRN Reason Stop Dose Admin Acetaminophen 325 mg 07/17/17 11:31 07/18/17 10:52 Tylenol - PO 325 mg Q6H PRN Administration PAIN LEVEL 4 - 6 Budesonide/Formoterol Fumarate 2 puff 07/11/17 10:00 07/18/17 09:51 Symbicort 160/4.5mcg - IH 2 puff BID ROEL Administration Carvedilol 12.5 mg 07/11/17 22:00 07/18/17 09:52 Coreg - PO 12.5 mg BID ROEL Administration Docusate Sodium 100 mg 07/15/17 22:00 07/18/17 06:24 Colace - PO 100 mg TID ROEL Administration Furosemide 80 mg 07/14/17 14:00 07/18/17 06:24 Lasix - PO 80 mg BID@0600,1400 ROEL Administration Heparin Sodium (Porcine) 5,000 unit 07/16/17 14:00 07/18/17 06:24 Heparin - SQ 5,000 unit TID ROEL Administration Insulin Aspart 1 vial 07/16/17 10:03 07/18/17 12:14 Novolog Vial Sliding Scale - SQ Not Given ACHS [facility] Protocol Oxycodone HCl 5 mg 07/17/17 11:31 07/18/17 10:52 Roxicodone - PO 5 mg Q6H PRN Administration PAIN LEVEL 4 - 6 Oxycodone HCl 10 mg 07/17/17 11:32 Roxicodone - PO Q4H PRN PAIN LEVEL 6-10 Spironolactone 25 mg 07/11/17 10:00 07/18/17 09:52 Aldactone - PO 25 mg DAILY ROEL Administration Thiamine HCl 100 mg 07/16/17 10:30 07/18/17 09:52 Vitamin B1 - PO 100 mg DAILY ROEL Administration Imaging: Right knee xray: loss of bone density, degenerative changes, fabella and some vascular calcifications. 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 Plan: 1. Lower extremity weakness, paraplegia syndrome - Mulitfactorial in etiology - Knee pain persists, per ortho knee pain due to OA/DJD - CTAP/chest negative for dissection - Vit b6, E pending - Rheum to eval for elevated ESR - Plan for rehab - D/w neuro 2. b/l knee pain - Severe knee and moderate hip osteoarthritis, no acute intervention at this time - Rheum consulted 3. Systolic CHF - Lasix 80mg BID - Sprionolactone 25mg daily - Coreq 12.5mg 4. PAF - PPM, refuses AC - ASA daily 5. DM II - ISS, BGM ACHS 6. ETOH abuse - Thiamine daily 7. ppx - Heparin sq 8. Urinary retention - Bladder stimulator placed - Now with banks - Will place call to Dr. villar Problem List - Problems (1) Fall Code(s): W19.XXXA - UNSPECIFIED FALL, INITIAL ENCOUNTER (2) Weakness Code(s): R53.1 - WEAKNESS (3) CHF (congestive heart failure) Code(s): I50.9 - HEART FAILURE, UNSPECIFIED Qualifiers: Congestive heart failure type: unspecified congestive heart failure type Congestive heart failure chronicity: acute (4) COPD (chronic obstructive pulmonary disease) Code(s): J44.9 - CHRONIC OBSTRUCTIVE PULMONARY DISEASE, UNSPECIFIED (5) HTN (hypertension) Code(s): I10 - ESSENTIAL (PRIMARY) HYPERTENSION (6) Morbid obesity Code(s): E66.01 - MORBID (SEVERE) OBESITY DUE TO EXCESS CALORIES Visit type - Emergency Visit Emergency Visit: Yes ED Registration Date: 07/12/17 Care time: The patient presented to the Emergency Department on the above date and was hospitalized for further evaluation of their emergent condition. - New Patient This patient is new to me today: No - Critical Care Critical Care patient: No
[2017-07-19] MEDS: HEPARIN NA (PORCINE) 5,000 UNITS/ML 1ML VIAL SQ SCH ×3 (06:32→22:25)
[2017-07-19] MEDS: FUROSEMIDE 40 MG TABLET (FP) PO SCH ×2 (06:32→14:16)
[2017-07-19] MEDS: DOCUSATE SODIUM 100 MG CAPSULE (FP) PO SCH ×3 (06:32→22:25)
[2017-07-19] MEDS: INSULIN SLIDING SCALE (NOVOLOG) 1 VIAL SQ SCH ×4 (06:37→22:42)
[2017-07-19 08:41] LABS: CALCIUM 8.4 mg/dL (8.5-10.1); CHLORIDE 97 mmol/L (98-107); POTASSIUM 4.4 mmol/L (3.5-5.1); SODIUM 138 mmol/L (136-145)
[2017-07-19 08:44] LABS: ANION GAP 8 (8-16); BLOOD UREA NITROGEN 50 mg/dL (7-18); CO2 33 mmol/L (21-32); GLUCOSE,RANDOM 128 mg/dL (74-106)
[2017-07-19] MEDS ORDERED: PT OWN MED DRAWER 7, Y5N ONE (09:20)
[2017-07-19] MEDS: CARVEDILOL 12.5 MG TABLET (FP) PO SCH ×2 (09:28→22:25)
[2017-07-19] MEDS: BUDESONIDE/FORMETEROL FUMARATE 160/4.5 mcg INHALER IH SCH ×2 (09:28→22:26)
[2017-07-19] MEDS: SPIRONOLACTONE 25 MG TABLET (FP) PO SCH (09:28)
[2017-07-19] MEDS: THIAMINE HCL 100 MG TABLET (FP) PO SCH (09:28)
[2017-07-19] MEDS: oxyCODONE HCL 5 MG TABLET PO PRN (10:47)
--- NOTE | 2017-07-19 13:55 | PN ---
Physical Exam: SUBJECTIVE: Patient seen and examined OBJECTIVE: Vital Signs Period Temp Pulse Resp BP Sys/Narvaez Pulse Ox Last 24 Hr 97.5 F-99.0 F 60-70 18-20 119-142/48-69 97-98 GENERAL: The patient is awake, alert, and fully oriented, in no acute distress. LUNGS: CTAB HEART: RRR. S1, S2. No m/r/g. ABDOMEN: SNTND. +BS EXTREMITIES: 2+ pulses, warm, well-perfused, +3 edema. NEUROLOGICAL: Cranial nerves II through XII grossly intact. Normal speech, gait not observed. SKIN: Warm, dry, normal turgor, no rashes or lesions noted Laboratory Results - last 24 hr 07/16/17 07/18/17 07/18/17 10:45 17:25 21:37 Sodium Potassium Chloride Carbon Dioxide Anion Gap BUN Creatinine POC Glucometer 154 147 Random Glucose Calcium Vitamin E 10.4 07/19/17 07/19/17 07/19/17 06:30 06:31 11:56 Sodium 138 Potassium 4.4 Chloride 97 L Carbon Dioxide 33 H Anion Gap 8 BUN 50 H Creatinine 1.0 POC Glucometer 138 164 Random Glucose 128 H D Calcium 8.4 L Vitamin E Active Medications Generic Name Dose Route Start Last Admin Trade Name Freq PRN Reason Stop Dose Admin Acetaminophen 325 mg 07/17/17 11:31 07/18/17 10:52 Tylenol - PO 325 mg Q6H PRN Administration PAIN LEVEL 4 - 6 Budesonide/Formoterol Fumarate 2 puff 07/11/17 10:00 07/19/17 09:28 Symbicort 160/4.5mcg - IH 2 puff BID ROEL Administration Carvedilol 12.5 mg 07/11/17 22:00 07/19/17 09:28 Coreg - PO 12.5 mg BID ROEL Administration Docusate Sodium 100 mg 07/15/17 22:00 07/19/17 06:32 Colace - PO 100 mg TID ROEL Administration Furosemide 80 mg 07/14/17 14:00 07/19/17 06:32 Lasix - PO 80 mg BID@0600,1400 ROEL Administration Heparin Sodium (Porcine) 5,000 unit 07/16/17 14:00 07/19/17 06:32 Heparin - SQ 5,000 unit TID ROEL Administration Insulin Aspart 1 vial 07/16/17 10:03 07/19/17 12:03 Novolog Vial Sliding Scale - SQ 2 units ACHS ROEL Administration Protocol Oxycodone HCl 5 mg 07/17/17 11:31 07/19/17 10:47 Roxicodone - PO 5 mg Q6H PRN Administration PAIN LEVEL 4 - 6 Oxycodone HCl 10 mg 07/17/17 11:32 Roxicodone - PO Q4H PRN PAIN LEVEL 6-10 Spironolactone 25 mg 07/11/17 10:00 07/19/17 09:28 Aldactone - PO 25 mg DAILY ROEL Administration Thiamine HCl 100 mg 07/16/17 10:30 07/19/17 09:28 Vitamin B1 - PO 100 mg DAILY ROEL Administration ASSESSMENT/PLAN: A: 87 year old male with obesity, chronic venous insuff/LE edema, systolic chf ( NICM, likely from etoh abuse), heart block s/p single chamber ppm (Biotronik, vvi), pAfib (refuses AC), HTN, chronic EtOH abuse, 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 P: Lower extremity weakness, paraplegia syndrome - Mulitfactorial in etiology - Knee pain persists, per ortho knee pain due to OA/DJD - Rheum pending - Plan for rehab b/l knee pain - Severe knee and moderate hip osteoarthritis, no acute intervention at this time - Rheum consulted Systolic CHF - Lasix 80mg BID - Sprionolactone 25mg daily - Coreq 12.5mg - daily weights - strict I&O's Paroxysmal AFib - PPM - refuses AC - ASA on hold s/p LP - Cards following DM II - ISS - FS qACHS ETOH abuse - Thiamine daily Urinary retention - Bladder stimulator placed - Now with banks PPX - sqh Dispo- STR Visit type - Emergency Visit Emergency Visit: Yes ED Registration Date: 07/12/17 Care time: The patient presented to the Emergency Department on the above date and was hospitalized for further evaluation of their emergent condition. - New Patient This patient is new to me today: Yes Date on this admission: 07/20/17 - Critical Care Critical Care patient: No
--- NOTE | 2017-07-19 19:46 | PN ---
Progress Note (short form) - Note Progress Note: Chief Complaint: leg weakness History of Present Illness: no sob, cp, palpit, orthopnea, dizziness, or worsening leg swelling. + weakness persists, can't stand. Current Medications Acetaminophen (Tylenol -) 325 mg PO Q6H PRN PRN Reason: PAIN LEVEL 4 - 6 Last Admin: 07/18/17 10:52 Dose: 325 mg Budesonide/Formoterol Fumarate (Symbicort 160/4.5mcg -) 2 puff IH BID [facility] Last Admin: 07/19/17 09:28 Dose: 2 puff Carvedilol (Coreg -) 12.5 mg PO BID [facility] Last Admin: 07/19/17 09:28 Dose: 12.5 mg Docusate Sodium (Colace -) 100 mg PO TID [facility] Last Admin: 07/19/17 14:16 Dose: 100 mg Furosemide (Lasix -) 80 mg PO BID@0600,1400 [facility] Last Admin: 07/19/17 14:16 Dose: 80 mg Heparin Sodium (Porcine) (Heparin -) 5,000 unit SQ TID [facility] Last Admin: 07/19/17 14:17 Dose: 5,000 unit Insulin Aspart (Novolog Vial Sliding Scale -) 1 vial SQ ACHS [facility] PRN Reason: Protocol Last Admin: 07/19/17 16:59 Dose: Not Given Oxycodone HCl (Roxicodone -) 5 mg PO Q6H PRN PRN Reason: PAIN LEVEL 4 - 6 Last Admin: 07/19/17 10:47 Dose: 5 mg Oxycodone HCl (Roxicodone -) 10 mg PO Q4H PRN PRN Reason: PAIN LEVEL 6-10 Spironolactone (Aldactone -) 25 mg PO DAILY [facility] Last Admin: 07/19/17 09:28 Dose: 25 mg Thiamine HCl (Vitamin B1 -) 100 mg PO DAILY [facility] Last Admin: 07/19/17 09:28 Dose: 100 mg Vital Signs - 24 hr 07/18/17 07/18/17 07/18/17 20:45 21:00 22:00 Temperature 99.0 F Pulse Rate 70 70 Respiratory 20 Rate Blood Pressure 130/48 O2 Sat by Pulse 97 97 Oximetry (%) 07/19/17 07/19/17 07/19/17 02:00 06:00 09:00 Temperature 97.7 F Pulse Rate 64 67 Respiratory 20 20 Rate Blood Pressure 142/69 O2 Sat by Pulse 98 98 97 Oximetry (%) 07/19/17 07/19/17 07/19/17 10:00 15:29 18:00 Temperature 97.5 F L 97.8 F Pulse Rate 60 68 Respiratory 20 20 Rate Blood Pressure 122/49 110/58 O2 Sat by Pulse 97 96 Oximetry (%) Intake & Output 07/17/17 07/18/17 07/19/17 07/20/17 07:59 07:59 07:59 07:59 Intake Total 1179 1020 530 940 Output Total 2300 4000 800 Balance -1121 -2980 -270 940 Weight 275 lb 3.2 oz 272 lb 0.2 oz nad, calm no jvd, neck supple rrr s1s2 no mrg + displaced pmi ctab, nl effort pos bs, obese nt nd , no hsm trace le edema b/l with chronic stasis changes. no cyanosis, clubbing diminished dp/pt no carotid bruit no jaundice/diaphoresis aaox3 Labs: CBC, BMP 07/16/17 07:43 07/19/17 06:30 - ....Imaging EKG: Other (prior tele: prob NSR, much baseline artifact (due to bladder stim). no tachy) Assessment/Plan ekg: v paced, underlying atrial artifact likely due to interference from patient 's bladder stimulator cxr: clear lungs, suboptimal visualization of left lung base. head ct: no acute pathology CT c/a/p: images and report reveiwed. mild thoracic aorta dilation, greatest diameter 4.3 cm. diffuse increased interstitial markings c/w chronic lung disease. mild basilar atelectasis. atrophic kidneys. heavy aortic atherosclerosis. see emr for full report. BLE dopplers: neg for dvt Echo 02/2017: lvef 45-50%, global hk, mild lve, mild lvh, nl rv, mod cecilio, mild mr, mod tr, mild ar, mod phtn, ao root mildly dilated echo 02/2015: mild lve, mild conc lvh, lvef 30-35% with global hk, rv mild dilated with nl fcn, cecilio, mild-mod mr, mod tr, mild-mod ar, rvsp 53, mild ao root dil mibi 08/2014: persantine, no ischemia/scar, lvef 41% Assessment/Plan 87 yo with h/o obesity, chronic venous insuff/le edema, systolic chf (NICM, likely from etoh abuse), heart block s/p single chamber ppm (biotronik, vvi), pafib (refuses AC), htn, etoh abuse, urinary retention s/p implantation of bladder stimulator 02/2016 presents with weakness/fall. 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 WHO 3 component (ANSHU?)): - Pt has history of dchf and superimposed NICM thought to be secondary to etoh, with coexisting mod-severe pulmonary hypertension and chronic LE edema. - His management has been complicated by poor compliance with meds and salt restriction - currently presenting with Rt > Lt CHF (JVD, edema, clear cxr) in setting of admitted med noncompliance and etoh abuse. BNP 2K (range 1K-9K). - Dry weight unclear but likely close to 280 lbs or less. On past admissions has been diuresed with lasix 80 mg IV bid--resumed same regimen here. - 07/12: wt declining (283), labs stable (bicarb rising slightly). same diuretic regimen today, reassess in AM--anticipate will change to po lasix regimen tomorrow - 07/16: changed to lasix 80 mg PO bid, on 07/14 (pm dose). bmp overall stable. weight slightly up today on bedscale (weakness preventing standing weight), but net negative with good uop. con't to monitor, if weight still rising tomorrow, reassess volume status and need to adjust po regimen. - 07/17-07/20: appears euvolemic on po regimen. weight trending down. con't same mgm't. con't to monitor for need to decrease dose of diuretics to maintain stable weight. - No signs of ACS, trops negx1. EKG v-paced - con't bb, aldactone. had self-dc'd acei in the past --> later started on hydralazine/imdur --> had to be stopped in past due to hypotension/dizziness/ falls. acute LE weakness, fall: - pt states his knee buckled. - being evaluated by neuro. s/p LP - per neuro note, suspicion of TIA/CVA is low. If TIA/CVA diagnosed or suspected by neuro, pt must be made aware that his risk of recurrent CVA is very high unless he either agrees to AC or to Watchman procedure single chamber ppm (biotronik, vvi): - interrogation here shows good battery life and nl lead function. - NOTE patient does not have an atrial lead. A-pacing spikes on ekg/telemetry are artifactual, likely due to interference from patient's bladder stimulator. --> d/c's telemetry since artifact is also present on telemetry. pafib: - rate controlled and s/p ppm. con't coreg (office notes report dose as 12.5 bid) - He has refused ac on multiple occasions (and is a poor candidate regardless given his noncompliance). ASA held for LP to be resumed when safe. It has been a few days since LP, will discuss with pmd regarding possibility of resuming tomorrow. - ? if dr biggs has discussed Watchman device with pt in office--defer to routine f/u htn: - bp controlled on current regimen. cont to monitor. - same plan etoh abuse: - repeatedly counselled on cessation re: risks of falls, head injury, spontaneous ICH on prior admits here, but he has refused cessation efforts - per pmd mild ao dilation/atherosclerosis noted on ct - con't bb, mgm't of bp. -resuming asa as mentioned. reasonable to defer statin given age and ongoing evaluation of weakness.
--- NOTE | 2017-07-19 20:48 | CONSULT ---
Consult Consult Specialty:: Rheumatology - History of Present Illness History of Present Illness: 87 year old male with systolic CHF (NICM, likely from etoh abuse), heart block s /p ppm (biotronik, not MRI suitable), P AFib (refuses AC), HTN, ETOH, abuse, chronic venous insufficiency/le edema, urinary retention, obesity, osteoarthritis of knees and gout admitted after a fall. HPI. Poor Historian. The patient reports that after walking to the bathroom he was unable to keep himself up, he felt his legs giving out and dropped to the floor on his knees. Since admission he had mild improvement, he can move the legs, however he cannot stand up. Oateoarthritis of knees. The patient has history of progressive pain in both knees, at leats for the last 4 years and it has been progressive in the last 6 months, The knee pain is related to activity and walks with a cane. Gout. 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 He was started on medication (he can only remember Colchicine) resulting in significant improvement, however in the last 6 months he developed pain in hands with decreased flexion and recently he noticed he developed soft nodules over the joints in his hands. Laboratory work up: 09/11/16 uric acid 12.4. Creatinine on 07/15/: 1.4, today 1.0. ESR 91. ALEJANDRA 1:[address] of lumbar spine with significant degenerative changes however no changes that would explain weakness in lower limbs. X rays of the knees (not weight bearing) revealed narrowing of the medial compartment with bone on bone contact L>R. X rays of the hips: mild degenerative changes.. 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: Other (shields's palsy) Cardio/Vascular: Yes: AFIB (anticoagulation, including ASA, declined), CHF, HTN Pulmonary: Yes: Asthma, COPD Musculoskeletal: Yes: Osteoarthritis Rheumatology: Yes: Gout Endocrine: Yes: Diabetes Mellitus, Other (obesity) - Past Surgical History Past Surgical History: Yes: Cataract Removal, Permanent Pacemaker - Alcohol/Substance Use Hx Alcohol Use: Yes (EVERYDAY) History of Substance Use: reports: None - Smoking History Smoking history: Unknown if ever smoked Have you smoked in the past 12 months: No Aproximately how many cigarettes per day: 40 If you are a former smoker, when did you quit?: 50 YEARS AGO - Social History ADL: Independent Occupation: Retired- [employer] History of Recent Travel: No Home Medications - Allergies Allergies/Adverse Reactions: Allergies Allergy/AdvReac Type Severity Reaction Status Date / Time No Known Drug Allergies Allergy Verified 12/18/15 03:22 Family Disease History - Family Disease History Family Disease History: Other: Father ( 83 COPD), Mother ( 66 brain tumor) Review of Systems - Review of Systems Eyes: reports: No Symptoms HENT: reports: No Symptoms Neck: reports: No Symptoms Cardiovascular: reports: Shortness of Breath Respiratory: reports: SOB on Exertion Musculoskeletal: reports: Other (See HPI) Physical Exam Vital Signs: Vital Signs Temperature 98.1 F 07/19/17 19:00 Pulse Rate 67 07/19/17 19:00 Respiratory Rate 24 07/19/17 19:00 Blood Pressure 104/69 07/19/17 19:00 O2 Sat by Pulse Oximetry (%) 96 07/19/17 18:00 Constitutional: Yes: Mild Distress Eyes: Yes: WNL HENT: Yes: WNL Neck: Yes: WNL Cardiovascular: Yes: WNL Respiratory: Yes: WNL Gastrointestinal: Yes: WNL Musculoskeletal: Yes: Other (22 swollen joints and 4 tender joints. He had swelling of both wrists, all MCPs and PIPs and both knees. Tenderness in elbows and ankles. Nodules (probable tophi)in the left elbow, eight hand over the 2nd and 3rd MCPs and 2nd and 3 rd PIPs. and in the left hand over the left 2nd and 3rd PIP.) Labs: CBC, BMP 07/16/17 07:43 07/19/17 06:30 Laboratory Tests 07/10/17 07/13/17 07/15/17 22:27 08:00 06:45 ESR Creatinine 1.4 H D Urine Color Yellow Urine Appearance Clear Urine pH 5.0 Ur Specific [place] 1.015 Urine Protein Negative Urine Glucose (UA) Negative Urine Ketones Negative Urine Blood 3+ H Urine Nitrite Negative Urine Bilirubin Negative Urine Urobilinogen Negative Ur Leukocyte Esterase Negative Urine WBC (Auto) 9 Urine RBC (Auto) 148 CSF Appearance CSF Color CSF WBC CSF RBC CSF Glucose CSF Total Protein ALEJANDRA Screen Positive H ALEJANDRA Homogeneous Pattern 1:80 07/16/17 07/16/17 07/19/17 10:45 12:25 06:30 ESR 91 H Creatinine 1.0 Urine Color Urine Appearance Urine pH Ur Specific [place] Urine Protein Urine Glucose (UA) Urine Ketones Urine Blood Urine Nitrite Urine Bilirubin Urine Urobilinogen Ur Leukocyte Esterase Urine WBC (Auto) Urine RBC (Auto) CSF Appearance Clear CSF Color Colorless CSF WBC 0 CSF RBC 8 CSF Glucose 84 H CSF Total Protein 63 H ALEJNADRA Screen ALEJANDRA Homogeneous Pattern Problem List - Problems (1) Gout Assessment/Plan: The patient has systemic inflammatory arthritis and presence of nodules ( probable tophi) and history of gout and very elevated uric acid. It is possible that the arthritis is related to gout, however at this time I cannot rule out other etiology. The patient has osteoarthritis of the knees and the paijn and inability to walk could be related to gout. The elevated ESR is probably related to the same problem As the patient had mild elevation of creatinine during this admission I will start Prednisone 40 mg/d for 3 days then tapering schedule. He has diabetes, can be controlled as inpatient. Serum uric acid. X rays of hands Code(s): M10.9 - GOUT, UNSPECIFIED (2) Osteoarthritis of knees, bilateral Code(s): M17.0 - BILATERAL PRIMARY OSTEOARTHRITIS OF KNEE Qualifiers: Osteoarthritis type: primary Qualified Code(s): M17.0 - Bilateral primary osteoarthritis of knee (3) ALEJANDRA positive Assessment/Plan: ALEJANDRA positive at a low titer, probable false positive test. Rule out RA. It is unlikley that the patient has vasculitis or other CTD. Plan: RF and X ray of hands. Code(s): R76.8 - OTHER SPECIFIED ABNORMAL IMMUNOLOGICAL FINDINGS IN SERUM
[2017-07-20] MEDS: HEPARIN NA (PORCINE) 5,000 UNITS/ML 1ML VIAL SQ SCH ×3 (06:04→21:44)
[2017-07-20] MEDS: FUROSEMIDE 40 MG TABLET (FP) PO SCH ×2 (06:04→13:43)
[2017-07-20] MEDS: DOCUSATE SODIUM 100 MG CAPSULE (FP) PO SCH ×3 (06:04→21:44)
[2017-07-20] MEDS: INSULIN SLIDING SCALE (NOVOLOG) 1 VIAL SQ SCH ×4 (06:08→21:48)
[2017-07-20] MEDS: ASPIRIN 81 MG CHEWABLE TABLETS PO SCH (10:01)
[2017-07-20] MEDS: predniSONE 20 MG TABLET (UD) PO SCH (10:01)
[2017-07-20] MEDS: CARVEDILOL 12.5 MG TABLET (FP) PO SCH ×2 (10:01→21:44)
[2017-07-20] MEDS: THIAMINE HCL 100 MG TABLET (FP) PO SCH (10:01)
[2017-07-20] MEDS: SPIRONOLACTONE 25 MG TABLET (FP) PO SCH (10:02)
[2017-07-20] MEDS: BUDESONIDE/FORMETEROL FUMARATE 160/4.5 mcg INHALER IH SCH ×2 (10:03→21:44)
[2017-07-20] MEDS: oxyCODONE HCL 5 MG TABLET PO PRN (10:31)
[2017-07-20] MEDS: ACETAMINOPHEN 325 MG TABLET (FP) PO PRN (10:32)
--- NOTE | 2017-07-20 18:21 | PN ---
Physical Exam: SUBJECTIVE: Patient seen and examined OBJECTIVE: Vital Signs Period Temp Pulse Resp BP Sys/Narvaez Pulse Ox Last 24 Hr 97.4 F-99.1 F 54-74 18-24 104-157/52-74 96-97 GENERAL: The patient is awake, alert, and fully oriented, in no acute distress. LUNGS: CTAB HEART: RRR. S1, S2. No m/r/g. ABDOMEN: SNTND. +BS EXTREMITIES: 2+ pulses, warm, well-perfused, +3 edema. NEUROLOGICAL: Cranial nerves II through XII grossly intact. Normal speech, gait not observed. SKIN: Warm, dry, normal turgor, no rashes or lesions noted Laboratory Results - last 24 hr 07/19/17 07/20/17 07/20/17 21:26 06:03 06:50 POC Glucometer 159 126 Uric Acid 9.7 H 07/20/17 07/20/17 11:57 16:46 POC Glucometer 150 222 Uric Acid Active Medications Generic Name Dose Route Start Last Admin Trade Name Freq PRN Reason Stop Dose Admin Acetaminophen 325 mg 07/17/17 11:31 07/20/17 10:32 Tylenol - PO 325 mg Q6H PRN Administration PAIN LEVEL 4 - 6 Aspirin 81 mg 07/20/17 10:00 07/20/17 10:01 Asa - PO 81 mg DAILY ROEL Administration Budesonide/Formoterol Fumarate 2 puff 07/11/17 10:00 07/20/17 10:03 Symbicort 160/4.5mcg - IH 2 puff BID ROEL Administration Carvedilol 12.5 mg 07/11/17 22:00 07/20/17 10:01 Coreg - PO 12.5 mg BID ROEL Administration Docusate Sodium 100 mg 07/15/17 22:00 07/20/17 13:44 Colace - PO 100 mg TID ROEL Administration Furosemide 80 mg 07/14/17 14:00 07/20/17 13:43 Lasix - PO 80 mg BID@0600,1400 ROEL Administration Heparin Sodium (Porcine) 5,000 unit 07/16/17 14:00 07/20/17 13:43 Heparin - SQ 5,000 unit TID ROEL Administration Insulin Aspart 1 vial 07/16/17 10:03 07/20/17 16:54 Novolog Vial Sliding Scale - SQ 4 units ACHS ROEL Administration Protocol Oxycodone HCl 5 mg 07/17/17 11:31 07/20/17 10:31 Roxicodone - PO 5 mg Q6H PRN Administration PAIN LEVEL 4 - 6 Oxycodone HCl 10 mg 07/17/17 11:32 Roxicodone - PO Q4H PRN PAIN LEVEL 6-10 Prednisone 40 mg 07/20/17 10:00 07/20/17 10:01 Deltasone - PO 40 mg DAILY ROEL Administration Spironolactone 25 mg 07/11/17 10:00 07/20/17 10:02 Aldactone - PO 25 mg DAILY ROEL Administration Thiamine HCl 100 mg 07/16/17 10:30 07/20/17 10:01 Vitamin B1 - PO 100 mg DAILY ROEL Administration IMAGING: RAD/HAND- RIGHT ADDENDUM ADDENDUM #1 The erosive change could represent early gout. ORIGINAL REPORT Right hand: Pain. Possible gout AP, lateral and oblique views of the right hand reveal loss of bone density with swelling, partially flexed digits and an erosive change by the distal radius with some joint calcification. There is no sign of a foreign body or soft tissue air. There is a forearm swelling. An acute fracture or subluxation is not seen. If symptoms persist, further imaging may be of help. Reported By: Paresh Fried MD 07/20/17 1130 Right hand: Pain. Possible gout AP, lateral and oblique views of the right hand reveal loss of bone density with swelling, partially flexed digits and an erosive change by the distal radius with some joint calcification. There is no sign of a foreign body or soft tissue air. There is a forearm swelling. An acute fracture or subluxation is not seen. If symptoms persist, further imaging may be of help. Reported By: Paresh Fried MD 07/20/17 1128 Left hand: Pain. Possible gout. AP, lateral and oblique views reveal loss of bone density, vascular calcifications, partially flexed digits and some erosive changes which could represent early gout. There is a radiopaque foreign bodies seen by the PIP joint of the left second digit near its radial margin. The erosive changes are new since 11/21/2013. A foreign body is old. Impression: Findings suggestive of gout. 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 P: Lower extremity weakness, paraplegia syndrome - Mulitfactorial in etiology - Knee pain persists, per ortho knee pain due to OA/DJD - Rheum pending - Plan for rehab b/l knee pain - Severe knee and moderate hip osteoarthritis, no acute intervention at this time - Rheum consulted Elevated Uric Acid Systolic CHF - Lasix 80mg BID - Sprionolactone 25mg daily - Coreq 12.5mg - daily weights - strict I&O's Paroxysmal AFib - PPM - refuses AC - restart ASA - Cards following DM II - ISS - FS qACHS ETOH abuse - Thiamine daily Urinary retention - Bladder stimulator placed - Now with banks PPX - sqh Dispo- STR Visit type - Emergency Visit Emergency Visit: Yes ED Registration Date: 07/12/17 Care time: The patient presented to the Emergency Department on the above date and was hospitalized for further evaluation of their emergent condition. - New Patient This patient is new to me today: No - Critical Care Critical Care patient: No
[2017-07-21] MEDS: DOCUSATE SODIUM 100 MG CAPSULE (FP) PO SCH ×3 (06:24→21:48)
[2017-07-21] MEDS: HEPARIN NA (PORCINE) 5,000 UNITS/ML 1ML VIAL SQ SCH ×3 (06:25→21:49)
[2017-07-21] MEDS: FUROSEMIDE 40 MG TABLET (FP) PO SCH ×2 (06:25→14:49)
[2017-07-21] MEDS: INSULIN SLIDING SCALE (NOVOLOG) 1 VIAL SQ SCH ×4 (06:27→21:50)
[2017-07-21 07:54] LABS: ANION GAP 6 (8-16); BLOOD UREA NITROGEN 49 mg/dL (7-18); CALCIUM 8.5 mg/dL (8.5-10.1); CHLORIDE 99 mmol/L (98-107); CO2 34 mmol/L (21-32); CREATININE 1.1 mg/dL (0.7-1.3); GLUCOSE,RANDOM 108 mg/dL (74-106); POTASSIUM 4.4 mmol/L (3.5-5.1); SODIUM 139 mmol/L (136-145)
--- NOTE | 2017-07-21 09:30 | PN ---
Progress Note (short form) - Note Progress Note: The patient was started yesterday on Prednisone 40 mg PO daily. At the present time he reports no significant improvement. He has [pain pain mainly in the neck and right elbow. No change in weakness in legs. X rays of the hands revealed significant degenerative changes in the 2nd and 5 th PIPs with erosions in the 3rd PIP and 2nd 3rd and 5th DIPs,. The erosions are suggestive of gout, in particular in the 3rd DIP (marginal erosion with sclerotic margins). Left hand. 4th DIPwith marginal erosions with sclerotic margin and lip of new bone formation indicative of gouty arthritis. Uric acid: 9.7. On the P/E tenderness and swelling in the right elbow, no changes in effusion in the other joints. Impression: gouty polyarticular arthritis. Osteoarthritis of the kneed. Plan: Continue with Prednisone 40 mg/d and tapering schedule. PT. As outpatient he will require uric acid lowering medication. Problem List - Problems (1) Gout Code(s): M10.9 - GOUT, UNSPECIFIED (2) Osteoarthritis of knees, bilateral Code(s): M17.0 - BILATERAL PRIMARY OSTEOARTHRITIS OF KNEE Qualifiers: Osteoarthritis type: primary Qualified Code(s): M17.0 - Bilateral primary osteoarthritis of knee (3) ALEJANDRA positive Code(s): R76.8 - OTHER SPECIFIED ABNORMAL IMMUNOLOGICAL FINDINGS IN SERUM
[2017-07-21] MEDS ORDERED: PT OWN MED DRAWER 7, Y5N ONE ×2 (09:52→21:21)
[2017-07-21] MEDS: THIAMINE HCL 100 MG TABLET (FP) PO SCH (10:01)
[2017-07-21] MEDS: predniSONE 20 MG TABLET (UD) PO SCH (10:01)
[2017-07-21] MEDS: ASPIRIN 81 MG CHEWABLE TABLETS PO SCH (10:01)
[2017-07-21] MEDS: SPIRONOLACTONE 25 MG TABLET (FP) PO SCH (10:01)
[2017-07-21] MEDS: CARVEDILOL 12.5 MG TABLET (FP) PO SCH ×2 (10:01→21:49)
[2017-07-21] MEDS: BUDESONIDE/FORMETEROL FUMARATE 160/4.5 mcg INHALER IH SCH ×2 (10:11→21:54)
[2017-07-21] MEDS ORDERED: INSULIN (NOVOLOG) ASPART 100 UNITS/ML 10ML VIAL ONE ×2 (11:06→17:43)
--- NOTE | 2017-07-21 20:01 | PN ---
Physical Exam: SUBJECTIVE: Patient seen and examined OBJECTIVE: Vital Signs Period Temp Pulse Resp BP Sys/Narvaez Pulse Ox Last 24 Hr 97 F-98.1 F 64-81 20-23 137-157/71-97 95-96 GENERAL: The patient is awake, alert, and fully oriented, in no acute distress. HEAD: Normal with no signs of trauma. EYES: PERRL, extraocular movements intact, sclera anicteric, conjunctiva clear. No ptosis. ENT: Ears normal, nares patent, oropharynx clear without exudates, moist mucous membranes. NECK: Trachea midline, full range of motion, supple. LUNGS: Breath sounds equal, clear to auscultation bilaterally, no wheezes, no crackles, no accessory muscle use. HEART: Regular rate and rhythm, S1, S2 without murmur, rub or gallop. ABDOMEN: Soft, nontender, nondistended, normoactive bowel sounds, no guarding, no rebound, no hepatosplenomegaly, no masses. EXTREMITIES: 2+ pulses, warm, well-perfused, no edema. NEUROLOGICAL: Cranial nerves II through XII grossly intact. Normal speech, gait not observed. PSYCH: Normal mood, normal affect. SKIN: Warm, dry, normal turgor, no rashes or lesions noted Laboratory Results - last 24 hr 07/16/17 07/20/17 07/21/17 10:45 21:46 06:26 Sodium Potassium Chloride Carbon Dioxide Anion Gap BUN Creatinine POC Glucometer 218 122 Random Glucose Calcium Vitamin B6 3.2 L 07/21/17 07/21/17 07/21/17 06:30 11:32 17:03 Sodium 139 Potassium 4.4 Chloride 99 Carbon Dioxide 34 H Anion Gap 6 L BUN 49 H Creatinine 1.1 POC Glucometer 122 179 Random Glucose 108 H Calcium 8.5 Vitamin B6 Active Medications Generic Name Dose Route Start Last Admin Trade Name Freq PRN Reason Stop Dose Admin Acetaminophen 325 mg 07/17/17 11:31 07/20/17 10:32 Tylenol - PO 325 mg Q6H PRN Administration PAIN LEVEL 4 - 6 Aspirin 81 mg 07/20/17 10:00 07/21/17 10:01 Asa - PO 81 mg DAILY ROEL Administration Budesonide/Formoterol Fumarate 2 puff 07/11/17 10:00 07/21/17 10:11 Symbicort 160/4.5mcg - IH 2 puff BID ROEL Administration Carvedilol 12.5 mg 07/11/17 22:00 07/21/17 10:01 Coreg - PO 12.5 mg BID ROEL Administration Docusate Sodium 100 mg 07/15/17 22:00 07/21/17 14:49 Colace - PO 100 mg TID ROEL Administration Furosemide 80 mg 07/14/17 14:00 07/21/17 14:49 Lasix - PO 80 mg BID@0600,1400 ROEL Administration Heparin Sodium (Porcine) 5,000 unit 07/16/17 14:00 07/21/17 14:49 Heparin - SQ 5,000 unit TID ROEL Administration Insulin Aspart 1 vial 07/16/17 10:03 07/21/17 17:39 Novolog Vial Sliding Scale - SQ 2 units ACHS [facility] Administration Protocol Oxycodone HCl 5 mg 07/17/17 11:31 07/20/17 10:31 Roxicodone - PO 5 mg Q6H PRN Administration PAIN LEVEL 4 - 6 Prednisone 40 mg 07/20/17 10:00 07/21/17 10:01 Deltasone - PO 40 mg DAILY ROEL Administration Spironolactone 25 mg 07/11/17 10:00 07/21/17 10:01 Aldactone - PO 25 mg DAILY ROEL Administration Tamsulosin HCl 0.4 mg 07/22/17 08:30 Flomax - PO DAILY@0830 [facility] Thiamine HCl 100 mg 07/16/17 10:30 07/21/17 10:01 Vitamin B1 - PO 100 mg DAILY ROEL Administration ASSESSMENT/PLAN: 87 year-old male with a PMH significant for HTN, alcoholic cardiomyopathy s/p PPM, systolic heart failure, paroxysmal afib not on anticoagulation, NIDDM, chronic venous insufficiency, urinary retention s/p bladder stimulator, and daily alcohol abuse. Admitted for acute heart failure exacerbation, lower extremity weakness and multiple falls. Acute on chronic systolic heart failure Alcoholic NICM Pulmonary hypertension Chronic lower extremity edema --down 4.8kg from admission --continue Lasix PO, spironolactone --daily weights, strict I&Os Paroxysmal atrial fibrillation --rate well-controlled --continue carvedilol --not on anticoagulation, patient preference --continue ASA Lower extremity weakness Paraplegia syndrome --plan for rehab Gouty polyarticular arthritis --per rheum, continue with prednisone 40mg and tapering schedule --will require uric acid lowering medication as outpatient Osteoarthritis --bilateral knee and moderate hip osteoarthritis NIDDM --Novolog sliding scale coverage Alcohol abuse --no s/s withdrawal --thiamine daily Urinary retention --bladder stimulator --voiding FEN Fluids: PO intake adequate Electrolytes: replete as indicated Nutrition: diabetic low sodium DVT prophylaxis: subq heparin Dispo: likely discharge tomorrow to SNF. Full code. Visit type - Emergency Visit Emergency Visit: Yes ED Registration Date: 07/12/17 Care time: The patient presented to the Emergency Department on the above date and was hospitalized for further evaluation of their emergent condition. - New Patient This patient is new to me today: Yes Date on this admission: 07/22/17 - Critical Care Critical Care patient: No
[2017-07-22] MEDS: DOCUSATE SODIUM 100 MG CAPSULE (FP) PO SCH ×2 (06:38→14:47)
[2017-07-22] MEDS: HEPARIN NA (PORCINE) 5,000 UNITS/ML 1ML VIAL SQ SCH ×2 (06:38→14:47)
[2017-07-22] MEDS: FUROSEMIDE 40 MG TABLET (FP) PO SCH ×2 (06:38→14:47)
[2017-07-22] MEDS: INSULIN SLIDING SCALE (NOVOLOG) 1 VIAL SQ SCH ×2 (06:42→11:55)
[2017-07-22] MEDS ORDERED: INSULIN DETEMIR 100 UNITS/ML MDV SQ ONE (06:58)
[2017-07-22] MEDS ORDERED: INSULIN (NOVOLOG) ASPART 100 UNITS/ML 10ML VIAL ONE ×3 (06:58→13:17)
[2017-07-22] MEDS ORDERED: TAMSULOSIN HCL 0.4 MG CAP.ER.24H (FP) PO SCH (08:30)
--- NOTE | 2017-07-22 09:49 | DS ---
Physical Exam: SUBJECTIVE: Patient seen and examined OBJECTIVE: Vital Signs Period Temp Pulse Resp BP Sys/Narvaez Pulse Ox Last 24 Hr 97 F-98.1 F 60-89 20-20 125-152/51-96 97-98 PHYSICAL EXAM GENERAL: The patient is awake, alert, and fully oriented, in no acute distress. HEAD: Normal with no signs of trauma. EYES: PERRL, extraocular movements intact, sclera anicteric, conjunctiva clear. ENT: Ears normal, nares patent, oropharynx clear without exudates, moist mucous membranes. NECK: Trachea midline, full range of motion, supple. LUNGS: Breath sounds equal, clear to auscultation bilaterally, no wheezes, no crackles, no accessory muscle use. HEART: Regular rate and rhythm, S1, S2 without murmur, rub or gallop. ABDOMEN: Soft, nontender, nondistended, normoactive bowel sounds, no guarding, no rebound, no hepatosplenomegaly, no masses. EXTREMITIES: 2+ pulses, warm, well-perfused, no edema. NEUROLOGICAL: Cranial nerves II through XII grossly intact. Normal speech, gait not observed. PSYCH: Normal mood, normal affect. SKIN: Warm, dry, normal turgor, no rashes or lesions noted. LABS Laboratory Results - last 24 hr 07/20/17 07/21/17 07/21/17 06:50 11:32 17:03 POC Glucometer 122 179 Rheumatoid Arth [employer] 20.4 H 07/21/17 07/22/17 21:47 06:40 POC Glucometer 188 118 Rheumatoid Arth [employer] CBCD WBC 7.5 K/mm3 (4.0-10.0) 07/16/17 07:43 RBC 3.88 M/mm3 (4.00-5.60) L 07/16/17 07:43 Hgb 12.0 GM/dL (11.7-16.9) 07/16/17 07:43 Hct 37.9 % (35.4-49) 07/16/17 07:43 MCV 97.8 fl (80-96) H 07/16/17 07:43 MCHC 31.6 g/dl (32.0-35.9) L 07/16/17 07:43 RDW 14.4 % (11.9-15.9) 07/16/17 07:43 Plt Count 170 K/MM3 (134-434) 07/16/17 07:43 MPV 9.1 fl (7.5-11.1) 07/16/17 07:43 CMP Sodium 139 mmol/L (136-145) 07/21/17 06:30 Potassium 4.4 mmol/L (3.5-5.1) 07/21/17 06:30 Chloride 99 mmol/L (98-107) 07/21/17 06:30 Carbon Dioxide 34 mmol/L (21-32) H 07/21/17 06:30 Anion Gap 6 (8-16) L 07/21/17 06:30 BUN 49 mg/dL (7-18) H 07/21/17 06:30 Creatinine 1.1 mg/dL (0.7-1.3) 07/21/17 06:30 Creat Clearance w eGFR > 60 (>60) 07/17/17 06:20 Calcium 8.5 mg/dL (8.5-10.1) 07/21/17 06:30 Total Bilirubin 1.0 mg/dL (0.2-1.0) D 07/17/17 06:20 AST 27 U/L (15-37) 07/17/17 06:20 ALT 32 U/L (12-78) 07/17/17 06:20 Alkaline Phosphatase 206 U/L (45-117) H 07/17/17 06:20 Total Protein 5.3 g/dl (6.4-8.2) L 07/17/17 06:20 Albumin 2.0 g/dl (3.4-5.0) L 07/17/17 06:20 HOSPITAL COURSE: Date of Admission:07/12/17 Date of Discharge: 07/22/17 needs intermittent straight cath Minutes to complete discharge: 35 Discharge Summary Reason For Visit: FALL AND COULDN'T GET UP Current Active Problems ALEJANDRA positive (Acute) Fall (Acute) Gout (Acute) Osteoarthritis of knees, bilateral (Acute) Pacemaker lead failure (Acute) Weakness (Acute) Weakness (Acute) Condition: Stable - Instructions Referrals: Martinez Siddiqui MD [Primary Care Provider] - This patient is new to me today: No Emergency Visit: Yes ED Registration Date: 07/12/17 Care time: The patient presented to the Emergency Department on the above date and was hospitalized for further evaluation of their emergent condition. Critical Care patient: No - Discharge Referral Referred to [facility] No
[2017-07-22] MEDS ORDERED: PT OWN MED DRAWER 7, Y5N ONE ×2 (10:03→10:21)
[2017-07-22] MEDS: predniSONE 20 MG TABLET (UD) PO SCH (10:06)
[2017-07-22] MEDS: SPIRONOLACTONE 25 MG TABLET (FP) PO SCH (10:06)
[2017-07-22] MEDS: ASPIRIN 81 MG CHEWABLE TABLETS PO SCH (10:06)
[2017-07-22] MEDS: CARVEDILOL 12.5 MG TABLET (FP) PO SCH (10:07)
[2017-07-22] MEDS: BUDESONIDE/FORMETEROL FUMARATE 160/4.5 mcg INHALER IH SCH (10:07)
[2017-07-22] MEDS: THIAMINE HCL 100 MG TABLET (FP) PO SCH (10:07)
[2017-07-22 14:09] VITALS: BP 132/68; PULSE 72; TEMP 97.6
[2017-07-22 16:00] LABS: URINE APPEARANCE CLEAR; URINE BILIRUBIN NEGATIVE (NEGATIVE); URINE BLOOD NEGATIVE (NEGATIVE); URINE COLOR STRAW; URINE GLUCOSE (UA) NEGATIVE (NEGATIVE); URINE KETONE NEGATIVE (NEGATIVE); URINE LEUK ESTERASE NEGATIVE (NEGATIVE); URINE NITRITE NEGATIVE (NEGATIVE); URINE PROTEIN NEGATIVE (NEGATIVE); URINE UROBILINOGEN NEGATIVE mg/dL (0.2-1.0)
== END 2017-07-22 16:38 | DRG 91 ==
LOC: FER 22:12 → FM/S 07-11 01:42 → OBSVTOIN 07-12 10:48 → FM/S 07-13 21:37 → J5S 07-14 17:55
PROVIDERS: ADMIT Internal Medicine; ATTEND Nurse Practitioner Acute Care
PROC: 009U3ZX Drainage of Spinal Canal, Percutaneous Approach, Diagnostic (ICD-10-PCS; principal; 2017-07-16)
PROC: B01BZZZ Fluoroscopy of Spinal Cord (ICD-10-PCS; 2017-07-16)
DX: G83.89 Other specified paralytic syndromes (principal); I50.23 Acute on chronic systolic (congestive) heart failure; E87.1 Hypo-osmolality and hyponatremia; J98.11 Atelectasis; I42.8 Other cardiomyopathies; M17.0 Bilateral primary osteoarthritis of knee; I48.0 Paroxysmal atrial fibrillation; G51.0 Bell's palsy; J44.9 Chronic obstructive pulmonary disease, unspecified; I27.20 Pulmonary hypertension, unspecified; M10.9 Gout, unspecified; E66.8 Other obesity; Z68.36 Body mass index [BMI] 36.0-36.9, adult; R29.6 Repeated falls; F10.10 Alcohol abuse, uncomplicated; N40.1 Benign prostatic hyperplasia with lower urinary tract symptoms; R33.8 Other retention of urine; R31.29 Other microscopic hematuria; I70.0 Atherosclerosis of aorta; E11.65 Type 2 diabetes mellitus with hyperglycemia; I73.9 Peripheral vascular disease, unspecified; I11.0 Hypertensive heart disease with heart failure; M54.5 Low back pain; R53.1 Weakness; W18.39XA Other fall on same level, initial encounter; Y92.098 Other place in other non-institutional residence as the place of occurrence of the external cause; R76.8 Other specified abnormal immunological findings in serum; L89.302 Pressure ulcer of unspecified buttock, stage 2; L89.621 Pressure ulcer of left heel, stage 1; L89.611 Pressure ulcer of right heel, stage 1; Z95.0 Presence of cardiac pacemaker
CPT/HCPCS: 36415; 62272; 70450-TC; 71045-TC-FY; 71250-TC; 72128-TC; 72131-TC; 73130-TC-LR-FY; 73130-TC-RT-FY; 73502-TC-LT-FY; 73502-TC-RT; 73562-TC-LT-FY; 73562-TC-RT-FY; 74176-TC; 76000-TC-FY; 76098-TC-FY; 80048; 80053; 81003; 81015; 82550; 82607; 82945; 82962; 83036; 83735; 83880; 83916; 84100; 84157; 84207; 84425; 84446; 84484; 84550; 85025; 85610; 85651; 86038; 86431; 87070; 87086; 87205; 87899; 93005; 93970-TC; 94010; 95860-TC; 97162-GP; 99282-25; G0378; J1644